=== PATIENT | male | born 1960 | race Caucasian/White ===

== ENCOUNTER 2021-11-20 16:42 | Emergency (ER) | payer OTHER, SELFPAY ==
[2021-11-20 17:16] VITALS: BP 136/75; PULSE 63; RESP 18; TEMP 36.6; O2SAT 95; BMI 30.2
--- NOTE | 2021-11-20 18:06 | ED_ITS ---
HPI - Wound/Laceration General Chief Complaint: Laceration/Wound Stated Complaint: Finger Lac Time Seen by Provider: 11/20/21 17:06 History of Present Illness HPI narrative: Patient is a 61-year-old gentleman up-to-date on his tetanus shot who inadvertently hit his left 5th digit of his upper extremity with high stiff straw hat washer. He suffered a superficial skin tear on the lateral aspect of the digit. This created the proximally a 4 cm skin tear. Patient has full range of motion of the digit there were no foreign bodies present. He has no numbness no tingling no weakness. He is otherwise uninjured. Related Data Home Medications Medication Instructions Recorded Confirmed ciprofloxacin HCl 500 mg tablet mg 11/20/21 levothyroxine 150 mcg tablet mcg 11/20/21 (Synthroid) meloxicam 11/20/21 Review of Systems Status of ROS: Reports: 6 or more systems reviewed and unremarkable except as noted in History and below PFSH PFSH Medical History Arthritis Hypothyroid Social History Smoking Status: Never smoker How often do you have a drink containing alcohol: 2-3 times a week AUDIT-C Alcohol total score: 3 Non-prescribed substance use: denies use Exam Narrative: Exam Narrative: EXAM GENERAL: Patient appears comfortable and well. EYES: No scleral icterus. ENT: Tympanic membranes and oropharynx normal. THYROID: no thyroid nodules or thyromegaly. LYMPH: No supraclavicular or cervical lymphadenopathy. SKIN: Skin tear as described above EXT: No dependent lower extremity pedal edema. HEART: Regular rate and rhythm with no murmurs, rubs, or gallops. LUNGS: Clear to auscultation bilaterally with no crackles or wheezes. ABD: Soft, non tender, non distended. PSYCH: Good eye contact, speech is not pressured. Const: Vital Signs, click to edit/add: Vital Signs - 24 hr 11/20/21 17:16 Temperature 97.9 F Pulse Rate [Right Pulse Oximeter] 63 Respiratory Rate 18 Blood Pressure [Ri ght Upper Arm] 136/75 Pulse Oximetry 95 Course Course Hospital Course: After explaining the risks and benefits I did provide digital block with 4 mL of 2% lidocaine without epinephrine injected in the base of the left 5th upper extremity digit. After suitable anesthesia had been achieved in the wound was aggressively irrigated I did close the defect with 6 running 3-0 Ethilon sutures. Eyes instructed on wound care. Vital Signs Vital signs: Initial Vital Signs Temperature 97.9 F 11/20/21 17:16 Temperature Source Temporal Artery Scan 11/20/21 17:16 Pulse Rate 63 11/20/21 17:16 Respiratory Rate 18 11/20/21 17:16 Blood Pressure 136/75 11/20/21 17:16 Blood Pressure Mean 95 11/20/21 17:16 Blood Pressure Position Sitting 11/20/21 17:16 Pulse Oximetry 95 11/20/21 17:16 Oxygen Delivery Method 11/20/21 17:16 Vital Signs Temperature 97.9 F 11/20/21 17:16 Pulse Rate 63 11/20/21 17:16 Respiratory Rate 18 11/20/21 17:16 Blood Pressure 136/75 11/20/21 17:16 Pulse Oximetry 95 11/20/21 17:16 Temperature 97.9 F 11/20/21 17:16 Pulse Rate 63 11/20/21 17:16 Respiratory Rate 18 11/20/21 17:16 Blood Pressure 136/75 11/20/21 17:16 Pulse Oximetry 95 11/20/21 17:16 Discharge Plan Discharge Clinical Impression: Laceration Patient Disposition: Home, Self-Care Condition: Stable Instructions: Laceration (ED) Additional Instructions: Sutures out in 1 week. Daily dressing changes for the next 4-5 days. Prescriptions: No Action ciprofloxacin HCl 500 mg tablet 0RF levothyroxine [Synthroid] 150 mcg tablet 0RF meloxicam 0RF Follow Up/Referrals: Chad Ryan MD [Primary Care Provider] - Stand Alone Forms: MyHealth Info Instructions
[2021-11-20 18:28] VITALS: RESP 18; TEMP 36.6
[2021-11-20 18:37] VITALS: BP 136/75; PULSE 63; RESP 18; TEMP 36.6; O2SAT 95
== END 2021-11-20 18:35 | disposition home or self-care (01) ==
PROVIDERS: Emergency Provider Internal Medicine; PCP Family Medicine
DX: S61.217A Laceration without foreign body of left little finger without damage to nail, initial encounter (principal); W26.9XXA Contact with unspecified sharp object(s), initial encounter
CPT/HCPCS: 12002; 99283

== ENCOUNTER 2023-08-18 16:57 | Outpatient (CLI) | payer OTHER, SELFPAY ==
--- NOTE | 2023-08-18 17:30 | MR_ITS ---
Patient: SHAYY ROCK Facility:?[facility] Patient ID:?[id number] Site Patient ID:?[id number]. Site :?[id number] Study:?MRI-Extremity Left WRIST WO-08/18/2023 6:32:19 PM Ordering Physician:RANI BURKS Final Report: EXAM: MRI OF THE LEFT WRIST, WITHOUT CONTRAST CLINICAL INDICATION: Left wrist sprain. COMPARISON PLAIN FILMS: None. COMPARISON CROSS-SECTIONAL IMAGING STUDIES: None. TECHNICAL: Axial, sagittal and coronal T1, PD, PD FS and gradient echo images. FINDINGS: JOINTS: Radiocarpal: Focal moderate to high-grade chondral fissuring with subchondral cystic change of the dorsal aspect of the distal radius in the lunate fossa. No joint effusion. Distal Radioulnar: No effusion, erosive change or arthrosis. Midcarpal: No effusion, erosive change or arthrosis. Carpal/metacarpal: Moderate to full-thickness chondromalacia throughout the 1st CMC joint with subchondral cystic change hypertrophic change. Mild to moderate chondromalacia with mild hypertrophic change in the 1st MCP joint. Periarticular Ganglia: None present. OSSEOUS STRUCTURES: Carpal Bones: Small intraosseous ganglia in the head and proximal pole of the scaphoid. Distal Radius: No fracture or marrow edema. Distal Ulna: No fracture or marrow edema. Normal ulnar variance. Proximal Metacarpals: No fracture or marrow edema. TRIANGULAR FIBROCARTILAGE COMPLEX: TFC: The fibrocartilaginous disc is intact. The radial attachment and ulnar styloid and foveal attachments of the TFC appear intact. Radioulnar Ligaments: The volar and dorsal radioulnar ligaments are intact. Ulnar Collateral Ligament, Meniscal Homologue and Prestyloid Recess: Unremarkable. LIGAMENTS: Scapholunate: Intact. No widening of the interval. Lunotriquetral: Intact. No widening of the interval. Extrinsic: No ligamentous edema or fluid filled defect. TENDONS: Flexor Tendons: Intact. No tenosynovitis. Extensor Tendons (Compartments 1-5): Intact. No tenosynovitis. ECU and 6th Extensor Compartment: The extensor carpi ulnaris tendon is intact. No abnormal tendon subluxation to suggest subsheath injury. No tenosynovitis. NEUROVASCULAR: Median Nerve: The median nerve is of normal size, caliber and course. No intrinsic abnormality of the carpal tunnel. Ulnar Nerve: The ulnar nerve is of normal size, caliber and course. No intrinsic abnormality of Guyon?s canal. OTHER FINDINGS: There is no soft tissue mass or fluid collection. IMPRESSION: 1. 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 2. Mild osteoarthritis in the 1st MCP joint. 3. Focal moderate to high-grade chondromalacia in the dorsal aspect of the distal radius. 4. Small ganglia in the scaphoid. Dictated by Senthil Davis MD @ 08/19/2023 10:41:43 AM Signed by:?Senthil Davis MD @08/19/2023 10:41:43 AM (Electronic Signature)
== END 2023-08-18 16:58 | disposition home or self-care (01) ==
PROVIDERS: PCP Family Medicine
DX: M25.532 Pain in left wrist (principal); M19.032 Primary osteoarthritis, left wrist; M94.232 Chondromalacia, left wrist; S63.592D Other specified sprain of left wrist, subsequent encounter
CPT/HCPCS: 73221

== ENCOUNTER 2024-04-19 10:22 | Outpatient (CLI) | payer OTHER, SELFPAY ==
--- NOTE | 2024-04-19 10:15 | CRLHL7_ITS ---
For Patients: As a result of the 21st Century Cures Act, medical imaging exams and procedure reports are released immediately into your electronic medical record. You may view this report before your referring provider. If you have questions, please contact your health care provider. EXAM: MRI OF THE RIGHT KNEE, WITHOUT CONTRAST CLINICAL INDICATION: Knee pain. PRIOR SURGERY: None reported. COMPARISON PLAIN FILMS: None available at time of interpretation. COMPARISON CROSS-SECTIONAL IMAGING STUDIES: None available at time of interpretation. TECHNICAL: Axial, sagittal and coronal T1, PD, PD FS and T2 FS images. 1.5 [employer] MR scanner. Knee coil. FINDINGS: OSSEOUS STRUCTURES: No fracture, marrow edema or marrow replacement process. JOINT SPACE AND CAPSULE: Effusion: Moderate-sized effusion. Joint Bodies: Numerous mineralized and ossified small to moderate-sized intra-articular bodies through the knee joint as well as popliteal cyst. CRUCIATE LIGAMENTS: Anterior Cruciate Ligament: Normal. Posterior Cruciate Ligament: Normal. EXTENSOR MECHANISM: Distal Quadriceps Tendon: Normal. Patellar Tendon: Normal. Medial Patellar Retinaculum and Medial Patellofemoral Ligament: Normal. Lateral Patellar Retinaculum: Normal. Normal patellar alignment. No patella sarah. Normal trochlear depth. Normal lateral trochlear inclination. MEDIAL COLLATERAL LIGAMENT AND POSTEROMEDIAL CORNER COMPLEX: Medial Collateral Ligament: Intact. Bowed outward by osteophytes. Medial Head of the Gastrocnemius and Semimembranosus Tendons: Normal. LATERAL COLLATERAL LIGAMENT COMPLEX AND POSTEROLATERAL CORNER COMPLEX: Fibular Collateral Ligament: Normal. Distal Biceps Femoris Tendon Complex: Normal. Iliotibial Band: Normal. Popliteus Tendon: Normal. Posterolateral Corner Capsule: Normal. MEDIAL COMPARTMENT: Medial Meniscus: Moderately prominent irregular undersurface greater than free margin tearing in the body and posterior horn with slight flattened morphology of the meniscal remnant. Relative sparing of the anterior horn. Articular Cartilage: Chronic appearing up to grade 4 cartilage loss in the mid to outer weight-bearing condyle and plateau with patchy sclerosis and some edema and moderate marginal osteophytes. Small subchondral cysts at the outer margin of the condyle anteriorly. LATERAL COMPARTMENT: Lateral Meniscus: Normal size and morphology without tear. Articular Cartilage: Diffuse grade 2 thinning. Concave 4 millimeter grade 3 defect posterior weight-bearing condyle. PATELLOFEMORAL COMPARTMENT: Articular Cartilage: Mild patchy grade 1 chondromalacia and grade 2 fissuring in the patella and up to grade 3 fissuring and grade 3 thinning throughout the trochlea with small marginal osteophytes of both patella and trochlea. PERIARTICULAR SOFT TISSUES: Popliteal Cyst: [id number] cyst filled with ossified trapped prior intra-articular bodies. Periarticular Cysts or Ganglia: None. Bursae: No prepatellar, superficial infrapatellar, deep infrapatellar, pes anserinus or semimembranosus/MCL bursitis. Musculature: No muscle atrophy or muscle edema. Subcutaneous and Soft Tissues: No subcutaneous or soft tissue mass, edema or fluid collection. Neurovascular Structures: Normal. IMPRESSION: 1. Innumerable ossified intra-articular bodies in a moderate-sized joint effusion and popliteal cyst. 2. Tricompartmental osteoarthritis is severe in the medial compartment. 3. Degenerative tearing of the medial meniscus. Dictated by Senthil Champion MD @ 04/20/2024 10:46:56 AM (Electronically Signed)
--- OUTSIDE RECORDS SUMMARY | 2024-04-19 10:25 | XMS_ITS | Encounter Summary ---
Author Organization [facility] Address [address] [place] [address] Care Team Providers Care Fare Register Repairer Name Role Phone Elsewhere, Pcp Primary Care Provider Unavailabl e Reason for Visit * Reason Comments Dizziness Encounter Details Date Type Department Care Team ([facility] st Contact Info) Description 02/19/2024 7:35 PM CDT - 02/20/2024 2:30 AM CDT Emergency [facility] Emergency Department [address] [place] [phone] Yolanda Champagne M.D. [address] [place] [phone] Presyncope (Primary Dx); Bradycardia Sinus Discharge Disposition: Home or Self Care Social History Tobacco Use Types Packs/Day Years Used Date Smoking Tobacco: Never Smokeless Tobacco: Never Alcohol Use Standard Drinks/Week Comments Yes 0 (1 standard drink = 0.6 oz pur e alcohol) social, once a month Nutrition Answer Date Recorded Nutrition: EVOO Fat Source 13 01/31 Nutrition: Servings of Fruits/Vegetables per Day Not on file 02/01/2020 Dental Answer Date Recorded Dental: Regular Dentist Unknown 07/18/19 21 Sex and Gender Information Value Date Recorded Sex Assigned at Male 01/20/2018 8:43 AM CDT Legal Sex Male 8:15 AM FLARE MAN Gender Identity Male 01/20/2018 8:43 AM CDT Sexual Orientation Straight 01/20/2018 8: 43 AM CDT documented as of this encounter Last Filed Vital Signs Vital Sign Reading Time Taken Comments Blood Pressure 178/92 02/20/2024 1:45 AM CDT Pulse 52 02/20/2024 1:18 AM CDT Temperature 36.6 C (97.9 F) 02/20/2024 12:18 AM CDT Respiratory Rate 16 02/20/2024 1:45 AM CDT Oxygen Saturation 97% 02/20/2024 12:44 AM CDT Inhaled Oxygen Concentration - - Weight 107 kg (235 lb 14.3 oz) 02/19/2024 7:37 P M CDT Height - - Body Mass Index 29.67 01/20/2018 8:48 AM CDT documented in this encounter Discharge Instructions * Discharge Instructions* Brett Ramsey M.D. - 02/20/2024 2:20 AM CDT - Your dizziness may be related to low heart rate. Recommend follow-up with you primary care provider regarding symptoms and consideration of Cardiology referral - Please follow-up with your PCP regarding high blood pressure noted during your ED visit today. - Advise reaching out to counselor for coping with grief * Attachments The following attachments cannot be sent through Care Everywhere. * Dizziness [id number] * Near-Syncope [id number] documented in this encounter Medications at Time of Discharge aspirin [address] tablet Take 81 mg by mouth daily. cholecalciferol (VITAMIN D3) 1,000 Unit tablet Take 1,000 Units by mouth daily. glucosamine-chond roitin 500-400 mg per tablet Take 1 tablet by mouth daily. levothyroxine (SYNTHROID, LEVOTHROID) 175 mcg tablet Take 175 mcg by mouth every morning before breakfast. loratadine (CLARITIN) 10 mg tablet Take 10 mg by mouth daily. omega-3 acid ethyl esters (LOVAZA) 1 gram capsule Take 2 g by mouth 2 (two) times a day. UNABLE TO FIND Take by mouth daily. Med Name: Saw Palmettol. 1200 or 1500 dosage strength. documented as of this encounter ED Notes * Yolanda Champagne M.D. - 02/20/2024 2:30 AM CDT I have personally seen and examined this patient. I have fully participated in the care of this patient. I have reviewed all clinical information including history, physical exam, orders, and plan. Hafsa with the note of the resident. Delightful 64-year-old gentleman with a history of AFib, sleep apnea, and of his daughter 2 years ago presents for evaluation of dizziness which he describes as lightheadedness without syncope x2 weeks. Additionally, he notes fatigue and left parasternal chest discomfort to touch x3 days. Exam: Very pleasant Admits to being depressed but denies suicidal ideation Bradycardic rate and regular rhythm Nontender abdomen Clear lung hayden throughout Calves are symmetric and without edema Equal radial pulses Impression/plan: Lightheadedness We obtained an ECG and lab work. He is bradycardic but that is longstanding. Lab work was reassuring. I have recommended follow-up with his primary care physician to discuss whether another Holter monitor could be of value. Additionally, I have recommended that he touch base with his counselor because I think he would benefit from talking through his grief reaction with the counselor again. I do not suspect risk for self-harm. The chest pain is atypical. Fortunately, troponin assays were reassuring. ED Course as of 02/20/24 0758 FriFeb 20, 2024 0120 I have personally reviewed the ECG and it is notable for: sinus karlos 54 bpm, no ischemia, normal intervals. 0123 Troponin T, Baseline, 5th gen: 6 0123 2H Delta Interp: Not Changing [id number] ECHO: normal EF 0151 Sodium, P: 141 0151 Potassium, P: 4.5 0151 Leukocytes: 6.3 0151 Hemoglobin: 14.5 0151 NT-Pro BNP(!): 101 I have personally reviewed the x-ray imaging which is notable for: no infiltrate, no PTX. No cardiomegaly. Final Diagnoses: as of 02/20/24 0758 Presyncope Bradycardia Sinus Yolanda Champagne M.D. 02/20/24 0802 * Brett Ramsey M.D. - 02/20/2024 12:49 AM CDT SUBJECTIVE CHIEF COMPLAINT/REASON FOR VISIT Dizziness HISTORY OF PRESENT ILLNESS Mr. Mitchell is a 64 y.o. male with a past medical history of arial fibrillation status post cardioversion in 2015 resulting in cardiac arrest followed by sinus bradycardia and recurrent atrial fibrillation in 2018 which converted to sinus after metoprolol (not currently on anticoagulation), sinus bradycardia (baseline HR 40s-50s), hypothyroidism, mild LUCIO presenting with 2 weeks of orthostatic dizziness and 2 days of chest pain. In the past few weeks, he has been feeling dizziness upon position changes from sitting to standing. Unclear that was spinning sensation. Denies blurred vision, losing consciousness, nausea, vomiting, or worsening tinnitus from baseline. Denies palpitation or fever. In the past few days, he has been experiencing dull chest discomfort on the left side which worsens with pressure, but not with exertion and improves with deep inspiration. Denies diaphoresis or shortness of breath. Patient reports losing his daughter recently. REVIEW OF SYSTEMS All other systems reviewed and are negative. OBJECTIVE Initial Vitals Temperature 02/19/241937 37 ??C Pulse Rate 02/19/241937 (!) 57 Heart Rate 02/20/24 0044 (!) 45 Resp Rate 02/19/241937 16 Blood Pressure 02/19/241937 147/74 SpO2 02/19/241937 96 % Pain Score 02/19/241938 2 No orthostatic hypotension PHYSICAL EXAMINATION Constitutional: Vitals reviewed. Cardiovascular: S1 normal and S2 normal. Bradycardia present. Capillary refill: takes less than 3 secondsEdema: no edema noted Pulmonary/Chest: Effort normal and breath sounds normal. Abdominal: Soft. Musculoskeletal: Comments: Tenderness at the left lower ribs close to the sternum Neurological: Alert and oriented to person, place, and time. He has cranial nerves II through XII intact. No nystagmus ASSESSMENT/PLAN His orthostatic dizziness is most concerning for presyncope which could present symptomatic bradycardia. However, he has been having longstanding bradycardia without symptoms, and there was no changein oral intake or medication. In the past few days, he also has constant dull chest pain. We will obtain EKG, troponin, and chest x-ray to rule out ACS given chest pain and pre-syncope. The improvement of pain with inspiration makes the suspicion for spontaneous pneumothorax low. He does have normal respiratory effort, oxygen saturation, and clear lung sounds, making pulmonary cause for the chestpain less likely. He did not have history of trauma, which lowers the suspicion for rib fractures. Of note, he does have high blood pressure in the ED which is reportedly higher than his usual bloodpressure. ED Course as of 02/20/24 0245 FriFeb 20, 2024 0046 ECG 12 Lead 0046 DX Chest AP or PA and Lateral 2 Views 0241 Initial troponin 6 and 2-hour troponin <6 which can exclude ACS Final Diagnoses: as of 02/20/24 0245 Presyncope Bradycardia Sinus EKG: sinus bradycardia without significant change Chest x-ray: Minimal left basilar atelectasis. Mild hypertrophic degenerative changes of the spine.Chest otherwise negative Plan - Disposition: home - Recommends PCP follow-up for monitoring and management of his presyncope and high blood pressure - Recommend consideration of Cardiology referral for the suspicion of asymptomatic bradycardia - Recommends seeking counselor for coping with grief Brett Ramsey M.D. Resident 02/20/24244 * Nancy Rodriguez R.N. - 02/19/2024 7:39 PM CDT Pt presents to the ED with dizziness x 2 weeks, fatigue and chest pain for 3 days. Pt states that his chest pain is worse when he pushes on his sternum Nancy Rodriguez R.N. 02/19/241939 documented in this encounter Plan of Treatment Not on file documented as of this encounter Procedures Procedure Name Priority Date/Time Associated Diagnosis Comments TROPONIN T, 2H/6H REFLEX, 5TH GEN, P Timed 02/19/2024 10:55 PM CDT CBC WITH DIFFERENTIAL, B STAT 02/19/2024 8:27 PM CDT TROPONIN T, BASELINE, 5TH GEN, P STAT 02/19/2024 8:26 PM CDT NT-PRO B-TYPE NATRIURETIC PEPTIDE (BNP), S STAT 02/19/2024 8:26 PM CDT BASIC METABOLIC PANEL, S/P STAT 02/19/2024 8:26 PM CDT DX CHEST AP OR PA AND LATERAL 2 VIEWS RAD - Semiurgent (Fast; most ED patients; some inpatients) 02/19/2024 8:23 PM CDT ECG STAT 02/19/2024 7:45 PM CDT documented in this encounter Results * Troponin T, 2 Hour with 6 Hour Reflex, 5th Gen (02/19/2024 10:55 PM CDT) Pathologist [facility] Troponin T, 2 hr, 5th gen <6 <=15 ng/L 02/19/2024 11:35 PM CDT STMA 2H Delta -1 ng/L 02/19/2024 11:35 PM CDT STMA Comment:6 hour collection no t indicated. 2H Delta Interp Not Changing 02/19/2024 11:35 PM CDT STMA Blood 02/19/2024 10:5 5 PM CDT 02/19/2024 11:11 PM CDT us Salbador Gamboa M.D. LAB BLOOD TROPONIN Final Result [facility] [address] [place] [address], [facility] [address] [place] [address] * CBC with Differential, Blood (02/19/2024 8:27 PM CDT) Pathologist [facility] Hemoglobin 14.5 13.2 - 16.6 g/dL 02/19/2024 9:10 PM CDT STMA Hematocrit 43.0 38.3 - 48.6 % 02/19/2024 9:10 PM CDT STMA Erythrocytes 4.90 4.35 - 5.65 x10(12)/L 02/19/2024 9:10 PM CDT STMA MCV 87.8 78.2 - 97.9 fL 02/19/2024 9:10 PM CDT STMA RBC Distrib Width 12.9 11.8 - 14.5 % 02/19/2024 9:10 PM CDT STMA Platelet Count 191 135 - 317 x10(9)/L 02/19/2024 9:10 PM CDT STMA Leukocytes 6.3 3.4 - 9.6 x10(9)/L 02/19/2024 9:10 PM CDT STMA Neutrophils 4.35 1.56 - 6.45 x10(9)/L 02/19/2024 9:10 PM CDT DHPM Lymphocytes 1.30 0.95 - 3.07 x10(9)/L 02/19/2024 9:10 PM CDT STMA Monocytes 0.41 0.26 - 0.81 x10(9)/L 02/19/2024 9:10 PM CDT STMA Eosinophils 0.22 0.03 - 0.48 x10(9)/L 02/19/2024 9:10 PM CDT STMA Basophils 0.03 0.01 - 0.08 x10(9)/L 02/19/2024 9:10 PM CDT STMA Blood (Blood, Venous) 02/19/2024 8:27 PM CDT 02/19/2024 9:05 PM CDT Yolanda Champagne M.D. LAB BLOOD ADD-ON Final Resu lt [facility] [address] [place] [address], [facility] STMA [facility] [address] [place] [address] [facility] [address] [place] [address] * Troponin T, Baseline with 2 Hour/6 Hour Reflex Biomarker Panel (02/19/2024 8:26 PM CDT) Troponin T, Baseline, 5th gen 6 <=15 ng/L 02/19/2024 9:34 PM CDT STMA Blood (Blood, Venous) 02/19/2024 8:26 PM CDT 02/19/2024 9:05 PM CDT us Yolanda Champagne M.D. LAB BLOOD TROPONIN Final Re sult Performing Organization Address City/[facility]/ZIP Co de Phone Number [facility] [address] [place], [place] [id number] [place] [address] 200 [place] [address] * (ABNORMAL) NT-Pro B-Type Natriuretic Peptide (BNP) (02/19/2024 8:26 PM CDT) Pathologist [facility] NT-Pro BNP 101(H) <=88 pg/mL 02/19/2024 9:34 PM CDT [facility] Comment: NT-proBNP values less than 300 pg/mL have a 99% negative predictive value for excluding acute congestive heart failure. A cutoff of 1200 pg/mL for patients with an eGFR<60 yields a diagnostic sensitivity and specificity of 89% and 72% for acute congestive heart failure. A diagnostic NT-proBNP cutoff of 900 pg/mL has been suggested in adults 50-75 years of age in the absence of renal failure. Blood (Blood, Venous) 02/19/2024 8:26 PM CDT 02/19/2024 9:05 PM CDT us Yolanda Champagne M.D. LAB BLOOD ADD-ON Final Resu lt [facility] [address] [place], [place] [address] [address] [place] [address] * (ABNORMAL) Basic Metabolic Panel (02/19/2024 8:26 PM CDT) [facility] Potassium, P 4.5 3.6 - 5.2 mmol/L 02/19/2024 9:25 PM CDT STMA Sodium, P 141 135 - 145 mmol/L 02/19/2024 9:25 PM CDT STMA Chloride, P 106 98 - 107 mmol/L 02/19/2024 9:25 PM CDT STMA Bicarbonate, P 25 22 - 29 mmol/L 02/19/2024 9:25 PM CDT STMA Anion Gap, P 10 7 - 15 02/19/2024 9:25 PM CDT STMA BUN (Blood Urea Nitrogen), P 31(H) 8 - 24 mg/dL 02/19/2024 9:25 PM CDT STMA Creatinine 1.09 0.74 - 1.35 mg/dL 02/19/2024 9:25 PM CDT STMA Estimated GFR (eGFR) 77 >=60 mL/min/BSA 02/19/2024 9:25 PM CDT ST[facility] Comment: Estimated GFR calculated using the 2020 CKD_EPI creatinine equation. Calcium, Total, P 9.5 8.8 - 10.2 mg/dL 02/19/2024 9:25 PM CDT STMA Glucose, P 110 70 - 140 mg/dL 02/19/2024 9:25 PM CDT ST[facility] Blood (Blood, Venous) 02/19/2024 8:26 PM CDT 02/19/2024 9:05 PM CDT Yolanda Champagne M.D. LAB BLOOD ADD-ON Final Resu lt [facility] [address] [place] [address], [facility] [address] [place] [address] * DX Chest AP or PA and Lateral 2 Views (02/19/2024 8:23 PM CDT) Anatomical Region Laterality Modality Chest, Thoracic RST LOS, Tho racic ARZ LOS, Thoracic FLA LOS N/A Digital Radiography Impressions 02/19/2024 8:35 PM CDT No synovial change since 12/05/2017. Minimal left basilar atelectasis. Mild hypertrophic degenerative changes of the spine. Chest otherwise negative. Narrative 02/19/2024 8:35 PM CDT EXAM: DX CHEST AP OR PA AND LATERAL 2 VIEWS Procedure Note David Avalos M.D. - 02/19/2024 EXAM: DX CHEST AP OR PA AND LATERAL 2 VIEWS IMPRESSION: No synovial change since 12/05/2017. Minimal left basilar atelectasis. Mildhypertrophic degenerative changes of the spine. Chest otherwisenegative. Yolanda Champagne M.D. IMG DIAGNOSTIC IMAGING PROC EDURES Final Result * ECG 12 Lead (02/19/2024 7:45 PM CDT) Ventricular Rate ECG/Min 54 BPM MUSE MD Interval 176 ms MUSE QRSD Interval 90 ms MUSE QT Interval 430 ms MUSE QTC Interval 407 ms MUSE P [place] 73 degrees MUSE R [place] 9 degrees MUSE T Wave [place] 62 degrees MUSE 02/19/2024 7:45 PM CDT 02/19/2024 7:49 PM CDT Impressions MUSE - 02/19/2024 7:49 PM CDT Sinus bradycardia Otherwise normal ECG When compared with ECG of 06-Dec-2017 14:12, No significant change was found Reviewed by RUBÉN Amezcua Narrative Procedure Note Hemant To M.D. - 02/19/2024 IMPRESSION: Sinus bradycardia Otherwise normal ECG When compared with ECG of 06-Dec-2017 14:12, No significant change was found Reviewed by RUBÉN Amezcua us Yolanda Champagne M.D. ECG ORDERABLES Final Resul t MUSE NA documented in this encounter Visit Diagnoses Diagnosis Presyncope- Primary Bradycardia Sinus documented in this encounter Administered Medications Inactive Administered Medications - up to 3 most recent administrations Medication Order MAR Action Action Date Dose Rate Site sodium chloride 0.9 % injection 10 mL 10 mL, intravenous, As needed, line care, Starting on Chaya 02/19/24 at 1940, Peripheral Intravenous Catheter and Rapid Infusion Catheter, prior to blood sampling, post blood transfusion or post blood sampling sodium chloride 0.9 % injection 3 mL 3 mL, intravenous, As needed, line care, Starting on Chaya 02/19/24 at 1940, Prior to and following infusion and between multiple consecutive infusions: sodium chloride 0.9 % injection sodium chloride 0.9 % injection 3 mL 3 mL, intravenous, Every 12 hours scheduled, First dose on Chaya 02/19/24 at 2100, Peripheral Intravenous Catheter and Rapid Infusion Catheter, when no infusion to maintain patency documented in this encounter Active and Recently Administered Medications Times are shown in CDT. Scheduled Medication Order 02/18/2024 02/19/2024 02/20/2024 sodium chloride 0.9 % injection 3 mL 3 mL, intravenous, Every 12 hours scheduled, First dose on Chaya 02/19/24 at 2100, Peripheral Intravenous Catheter and Rapid Infusion Catheter, when no infusion to maintain patency 2100 (Due) PRN Medication Order 02/18/2024 02/19/2024 02/20/2024 sodium chloride 0.9 % injection 10 mL 10 mL, intravenous, As needed, line care, Starting on Chaya 02/19/24 at 1940, Peripheral Intravenous Catheter and Rapid Infusion Catheter, prior to blood sampling, post blood transfusion or post blood sampling sodium chloride 0.9 % injection 3 mL 3 mL, intravenous, As needed, line care, Starting on Chaya 02/19/24 at 1940, Prior to and following infusion and between multiple consecutive infusions: sodium chloride 0.9 % injection documented in this encounter Care Teams Fare Register Repairer Relationship Specialty Start Date End Date Elsewhere, Pcp PCP - General Internal Medicine 02/19/24 documented as of this encounter
--- OUTSIDE RECORDS SUMMARY | 2024-04-19 10:25 | XMS_ITS | Encounter Summary ---
Author Organization [facility] Address [address] [place] [id number] Care Team Providers Care Hot Stick Worker Name Role Phone Karl Rose MD Primary Care Provider [phone] Reason for Visit * Reason Onset Date Comments MRI Right Knee 04/09/2024 Encounter Details Date Type Department Care Team (Late st Contact Info) Description 04/09/2024 Telephone [facility] [address] [place] [id number] Odilia Chua I., PA-C [address] [place] [phone] MRI Right Knee Social History Tobacco Use Types Packs/Day Years Used Date Smoking Tobacco: Former Cigars Q uit: 1989 Smokeless Tobacco: Never Alcohol Use Standard Drinks/Week Comments Yes 0 (1 standard drink = 0.6 oz pur e alcohol) AUDIT-C Answer Date Recorded Frequency of Alcohol Consumption 2-4 times a fri06/03/2018 Average Number of Drinks 1 or 2 019 Frequency of Binge Drinking Never 05/19 PHQ-2 Answer Date Recorded PHQ-2 Score 0 09/16/2018 Education Answer Date Recorded What is the highest level of school you have completed or the highest degree you have received? 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 ES INSPECTOR * Telephone Encounter - Odilia Chua PA-C - 04/09/2024 1:29 PM CST The MRI order and cover sheet has been printed for faxing. [facility] fax number: ES INSPECTOR * Telephone Encounter - Allison Rodgers MA - 04/09/2024 1:16 PM CST Patient would like MRI ordered through [facility], he will be following up therewith Dr. Chad Ryan. Recommended he call our business office to discuss his billing/coding concerns, phone number was given to patient. ES INSPECTOR * Telephone Encounter - Odilia Chua PA-C - 04/09/2024 12:51 PM BRAKES INSPECTOR We can send the MRI to the location he is requesting, but since [facility] out of network for him, did he still want to follow-up with an [facility] provider? ES INSPECTOR * Telephone Encounter - Odilia Chua PA-C - 04/09/2024 12:49 PM BRAKES INSPECTOR The patient will need to contact the business office. It was not coded as an emergency. ES INSPECTOR * Telephone Encounter - Senia Valerio - 04/09/2024 11:33 AM CST Patient was seen on 05/01/24 for his right knee. Patient states work comp will not cover this injury. Patient states [facility] out of network. Patient would like to have MRI done in [place]. Please send request to [facility]. Patient would also like to know how the visit last week was coded. Patient states if it was coded as an emergency it would be covered in network for his insurance. Please advise. ES INSPECTOR documented in this encounter Plan of Treatment Not on file documented as of this encounter Visit Diagnoses Not on filedocumented in this encounter Care Teams Hot Stick Worker Relationship Specialty Start Date End Date Karl Rose MD [address] [place] [phone] PCP - General 12/23/17 documented as of this encounter
--- OUTSIDE RECORDS SUMMARY | 2024-04-19 10:25 | XMS_ITS | Data Portability ---
Author Organization [facility] Jasmyn gy, [facility] Address [address] [place] [address] Care Team Providers Care Risk Analyst Name Role Phone SHAYY CLEMENTS Primary Care Provider [phone] Assessment Encounter Date Assessment Date Assessment LastModified by Organization Details LastModified Time 11/21/2021 11/21/2021 61 Y/O MALE, PATIENT FOLLOWED BY DR COON WITH AN ELEVATED, RISING PSA. LUIS FIRM RT LOBE. TRUS/BX WENT WELL. PLAN RUTINE POSTOP RESTRICTIONS, LIMITATIONS AND WILL CALL PATH [email or web address] Not available 11/21/2021 22:26:50 Plan of Treatment Reminders Order Date Submit Date Provider Last Modified By Organization Details Last Modified Time Details Appointments None recorded. Lab urinalysis, dipstick 2021 022 [email or web address] Not available 11:36:11 PSA, total, serum or plasma 2021 022 [email or web address] Not available 13:20:29 PSA, serum or plasma 2021 022 [email or web address] Not available 11:06:51 PSA, serum or plasma 2021 022 [facility], [address], [place], [address], 10:40:15 PSA, total, serum or plasma 2021 022 [email or web address] 30 [facility], [address], [place], [address], 10:45:11 Referral None recorded. Procedures bladder scan (PROC) 2021 Not available 11:41:41 Surgeries None recorded. Imaging MRI, prostate, w/wo contrast 2021 [email or web address] Not available 12:49:39 Medication Orders tamsulosin 0.4 mg capsule [address] [facility] [address] [facility], [address] [place] [address], [id number], 22:13:43 gentamicin 40 mg/mL injection solution [address] [facility], [address] [place] [address], [phone], 10:32:00 tadalafil 20 mg tablet 2021 [facility], [address] [place] [address], [id number], 11:03:52 tamsulosin 0.4 mg capsule 2021 [facility], [address] [place] [address], [id number], 11:03:49 Patient TargetsNo targets recorded. Patient InstructionsNo instructions recorded. Reason for Referral None Reported. Results Created Date Observation Date Name Description Value Unit Range Abnormal Flag Note LastModifiedBy Organization Detail LastModifiedTime 07/19/1907/18/2021 bladd er scan (PROC ) Volume (in mL) 249ml Not Available [facility] [address], [place], [address], 07/18/2021 11:41:30 07/19/19 22 07/18/2021 urina lysis , dipst ick pH-Status 5.5 Not Available [facility] [address], [place], [address], 07/18/2021 11:35:44 09/13/19 22 09/12/2021 PSA, serum or plasm a PSA, Total 5.9ng/ mL Not Available [facility] [address], [place], [address], 09/12/2021 11:06:36 04/24/20 22 04/24/2022 PSA, serum or plasm a PSA 6.0 ng/mL 0-4.0 Not Available [facility] [address], [place], [address], 04/24/2022 10:40:03 07/24/19 22 06/21/2021 bladd er scan (PROC ) No observ ation record ed. BARCODE Not Available 2021 08:18:47 09/25/19 22 09/24/2021 MRI, prost ate, w/wo contr ast No observ ation record ed. [email or web address] [facility] (Centralized Fax Number) [phone], [place], [address], 06/07/2022 11:07:09 04/26/20 22 04/24/2022 bladd er scan (PROC ) No observ ation record ed. Not Available 05/20 11:06:53 Result Notes None recorded. Procedures Surgical History Date Name Laterality Status Provider Name and Address Organization Details Recorded Time 04/24/20 MOTOR VEHICLE EXAMINER/blood draw completed Marielle Bradford [facility] 04/24/2022 10:42:36 04/24/20 Bladder Scan completed Kingsley Coon MD [address] [place] [address],[address] [place] [address], [address], [facility] 04/24/2022 10:39:59 11/22/19 22 RU Prostate Bx completed Isidoro Shoemaker MD [address] [place] [address],[facility] [address], [address], [facility] 11/21/2021 22:25:30 09/13/19 22 Bladder Scan completed Kingsley Coon MD [address] [place] [address],[address], [place], [address], [facility] 09/12/2021 11:19:57 09/13/19 22 Blood Draw/MOTOR VEHICLE EXAMINER/PSA RESULTS completed Marielle Bradford [facility] 09/12/2021 11:06:29 07/19/19 22 Bladder Scan completed Kingsley Coon MD [address] [place] [address],[address], [place], [address], [facility] 07/18/2021 11:41:15 procedure on ankle completed Kingsley Coon MD [address] [place] [address],[address], [place], [address], [facility] 07/18/2021 11:44:44 excision of varicose vein completed Kingsley Coon MD [address] [place] [address],[address], [place], [address], [facility] 07/18/2021 11:45:23 Hernia Repair completed Kingsley Coon MD [address] [place] [address],[address], [place], [address], [facility] 07/18/2021 11:48:19 procedure on elbow completed Kingsley Coon MD [address] [place] [address],[address], [place], [address], [facility] 07/18/2021 11:45:43 referral to atrial fibrillation clinic completed Kingsley Coon MD [address] [place] [address],[address], [place], [address], [facility] 07/18/2021 11:46:26 Imaging Results Imaging Date Name Status LastModified by Organiz ation Details LastModified Time 06/21/2021 bladder scan (PROC) completed BARCODE Information not available 07/23/2021 08:18:47 09/24/2021 MRI, prostate, w/wo contrast completed [email or web address] [facility] (Centralized Fax Number) [phone], [place], [address], 06/07/2022 11:07:09 04/24/2022 bladder scan (PROC) completed [email or web address] Information not available 06/07/2022 11:06:53 Procedure Notes None recorded. Medical Equipment None Reported. Allergies No known drug allergies Medications Name Sig Start Date Stop Date Status Note LastModified by Organization Details LastModified Time Synthroid 150 mcg tablet active Not Available Not Available Not Available ciprofloxac in 500 mg tablet Take 1 tablet every 12 hours by oral route for 4 days. 04/24 completed Not Available Not Available Not Available meloxicam 7.5 mg tablet 2021 active Not Available Not Available Not Avai lable tamsulosin 0.4 mg capsule Take 1 capsule every day by oral route. 2021 active Not Available Not Available Not Avai lable mupirocin 2 % topical ointment APPLY OINTMENT TOPICALLY THREE TIMES DAILY 07/18 completed Not Available Not Available Not Available gentamicin 40 mg/mL injection solution Take 2 mL by injection route. 04/24 completed Not Available Not Available Not Available fluticasone propionate 50 mcg/actuati on nasal spray,suspe nsion 07/18 completed Not Available Not Available Not Available tadalafil 20 mg tablet Take 1 tablet as needed by oral route. 2021 active Not Available Not Available Not Avai deb [facility] COVID-19 Antigen Rapid Home Test kit USE DIRECTED 09/12 completed Not Available Not Available Not Available Vitals Date Recorded Body height Body mass index (BMI) Body weight Provider Name and Address Organization Details Last Updated DateTime 04/24/2022 187.96 cm 30.8 kg/m2 806585.17 mendy Coon MD [address] [place] [address],[address], [address], [facility] 04/24/2022 10:31:42 Date Recorded Body height Body mass index (BMI) Body weight Provider Name and Address Organization Details Last Updated DateTime 07/18/2021 187.96 cm 30.2 kg/m2 431529.21 mendy Coon MD [address] [place] [address],[address], [address], [facility] 07/18/2021 11:41:49 Date Recorded Body height Body mass index (BMI) Body weight Provider Name and Address Organization Details Last Updated DateTime 09/12/2021 187.96 cm 30.2 kg/m2 721401.21 g Marielle Bradford [facility] 09/12/2021 11:05:49 Date Recorded Body height Provider Name an d Address Organization Details Last Updated DateTime 11/21/2021 187.96 cm Cesar Sharif [facility] 0 11/21/2021 12:52:30 Social History Question Answer Notes LastModified by Organizat ion Details LastModified Time Tobacco Smoking Status Never Smoker Kingsley Coon MD [address] [facility],[address], [place], [address], [facility] 07/18/2021 11:43:31 What Is Your Level Of Alcohol Consumption? Moderate Information not available 07/18/2021 What Is Your Level Of Caffeine Consumption? Occasional Information not available 07/18/2021 What Was The Date Of Your Most Recent Tobacco Screening? 04/24/2022 Information not available 04/24/2022 Sex: Unknown Functional Status None recorded. Mental Status None recorded. Family History Relationship Description Onset Age of this Age Resolved Age Notes LastModified by Organization Details LastModified Time Father Malignant melanoma Not available 2021 11:42:56 Brother Family history of diabetes mellitus Not available 2021 11:43:01 Medical History Condition Response Other Y Past Encounters Encounter ID Performer Location Encounter Start Date Encounter Closed Date Diagnosis/Indication Diagnosis SNOMED-CT Code Diagnosis ICD10 Code [id number] MD Delia Zendejas [address] [place] [address] 07/18/2021 11:25:39 07/20/2021 16:18:10 Prostate specific antigen above reference range 791963973 R97.20 Lower urin leann tract symptoms due to benign prostatic hypertrophy 8905619498 9101 N40.1 Primary er ectile dysfunction 388765699 N52.9 [id number] MD SHRUTHI Zendejas[facility] [address] [place] [address] 09/12/2021 11:01:40 09/17/2021 14:35:27 Prostate specific antigen above reference range 062305605 R97.20 Lower urin leann tract symptoms due to benign prostatic hypertrophy 0705364349 9101 N40.1 Primary er ectile dysfunction 512458983 N52.9 [id number] Isidoro Shoemaker MD [facility] [address] [place] [address] 11/21/2021 12:48:32 11/23/2021 11:19:34 Prostate specific antigen above reference range 753802307 R97.20 [id number] Kingsley Coon MD [facility] [address] [place] [address] 04/24/2022 10:15:19 05/01/2022 09:53:21 Prostate specific antigen above reference range 149960785 R97.20 Lower urin leann tract symptoms due to benign prostatic hypertrophy 2285470377 9101 N40.1 Primary er ectile dysfunction 177266372 N52.9 Health Concerns Section Related Observation LastModified by Organization Detai ls LastModified Time None Recorded Concern Status LastModified by Organization Details LastModified Time None Recorded Advance Directives Directive None Recorded Payers Encounter Date Sequence Insurance Name Policy Number Policy Styles Covered Member ID Styles Member ID Guarantor Name 07/18/2021 1 [facility] Shayy Mitchell [id number] Shayy Mitchell 09/12/2021 [facility] Shayy Mitchell [id number] Shayy Mitchell 11/21/2021 1 [facility] ([facility]) Shayy Mitchell [id number] Shayy Mitchell 04/24/2022 1 [facility] ([facility]) Shayy Huang [id number] Shayy Mitchell Notes Date Note Type Note Provider Name and Address Organization Details Recorded Time 07/18/2021 text/html 61 yo male presents for evaluation of elevated PSA and trouble with urination (for the past several months). No Family Hx of Prostate cancer. He voids every 1-2 hours during the day and 2x/night. He reports hesitancy, slow stream, and urgency. He denies dysuria. He also reports increasing difficulty obtaining and maintaining erections over the past 1-2 years. He does have morning erections - denies pain or curvature with erections.- UA - no blood - no LE- PVR = 249 mL PSA - 4.81 (04/24/22)- 3.6 (November 2019)- 4.2 (May 2019) Kingsley Coon MD [address] [place] [address],[address], [address], [facility] 07/18/2021 22:26:47 09/12/2021 text/html 61 yo male presents for evaluation of elevated PSA and trouble with urination (for the past several months). No Family Hx of Prostate cancer. He voids every 1-2 hours during the day and 2x/night. He reports hesitancy, slow stream, and urgency. He denies dysuria. He also reports increasing difficulty obtaining and maintaining erections over the past 1-2 years. He does have morning erections - denies pain or curvature with erections.He is on Flomax 0.4 mg daily. 09/12/21 - He presents for follow-up on PSA and urination. He notes some improvement with Flomax. He voids every 2-3 hours during the day and 1-2x/night. He notes some drippage after urination. He also reports less urgency. He reports difficulty obtaining and maintaining erections - no pain or curvature erections. His daughter recently (from seizure).- PVR = 132 mL- PSA - 5.9 PSA - 5.9 (09/12/21)- 4.81 (04/24/22)- 3.6 (November 2019)- 4.2 (May 2019) Kingsley Coon MD [address] [place] [address],[address] [facility], [place], [address], [facility] 09/15/2021 18:53:36 11/21/2021 text/html 61 YOM HERE FOR TRUS BIOPSY, PT OF DR. COON (09/12/21) DR. COON61 yo male presents for evaluation of elevated PSA and trouble with urination (for the past several months). No Family Hx of Prostate cancer. He voids every 1-2 hours during the day and 2x/night. He reports hesitancy, slow stream, and urgency. He denies dysuria. He also reports increasing difficulty obtaining and maintaining erections over the past 1-2 years. He does have morning erections - denies pain or curvature with erections.He is on Flomax 0.4 mg daily. 09/12/21 - He presents for follow-up on PSA and urination. He notes some improvement with Flomax. He voids every 2-3 hours during the day and 1-2x/night. He notes some drippage after urination. He also reports less urgency. He reports difficulty obtaining and maintaining erections - no pain or curvature erections. His daughter recently (from seizure).- PVR = 132 mL- PSA - 5.9 PSA - 5.9 (09/12/21)- 4.81 (04/24/22)- 3.6 (November 2019)- 4.2 (May 2019) HERE FOR SCHEDULE TRUS BX. Isidoro Shoemaker MD [address] [place] [address],[facility] [address], [address], [facility] 01/23/2022 12:05:55 04/24/2022 text/html 62 yo male presents for evaluation of elevated PSA and trouble with urination (for the past several months). No Family Hx of Prostate cancer. He voids every 1-2 hours during the day and 2x/night. He reports hesitancy, slow stream, and urgency. He denies dysuria. He also reports increasing difficulty obtaining and maintaining erections over the past 1-2 years. He does have morning erections - denies pain or curvature with erections.He is on Flomax 0.4 mg daily. TRUS bx (11/21/21) - 70 gm - no cancer - + chronic inflammation at Right mid 09/12/21 - He presents for follow-up on PSA and urination. He notes some improvement with Flomax. He voids every 2-3 hours during the day and 1-2x/night. He notes some drippage after urination. He also reports less urgency. He reports difficulty obtaining and maintaining erections - no pain or curvature erections. His daughter recently (from seizure). 04/24/22 - He presents for follow-up on elevated PSA. He voids every 2-3 hours during the day and 1-2x/night. He notes less urgency - denies dysuria. He still has trouble obtaining and maintaining erections.- PVR = 153mL- PSA - 6.0 PSA - 6.0 (04/24/22)- 4.74 (02/26/22)- 5.9 (09/12/21)- 4.81 (04/24/22)- 3.6 (November 2019)- 4.2 (May 2019) Prostate MRI (09/24/21) - 76 gm - no suspicious lesions- no enlarged lymph nodes Kingsley Coon MD [address] [place] [address],[address], [place], [address], [facility] 04/24/2022 11:30:06
--- OUTSIDE RECORDS SUMMARY | 2024-04-19 10:25 | XMS_ITS | Clinical Summary ---
Author Organization [facility] Address [address] [place] [address] Care Team Providers Care Sign Language Translator Name Role Phone Karl Rose MD Primary Care Provider Allergies Active Allergy Reactions Criticality Noted Date Comments Other House Dust Mite Pollen Extract 05/30/2018 Seasonal Medications ibuprofen (ADVIL,MOTRIN) 200 MG tablet Take 400 mg by mouth if needed Active glucosamine-cho ndroitin 500-400 MG tablet Take 1 tablet by mouth 1 (one) time each day Active cholecalciferol (VITAMIN D-[address]) 1000 units tablet Take 1,000 Units by mouth 1 (one) time each day Active acetaminophen (TYLENOL) 500 MG tablet Take 500 mg by mouth if needed Active Krill Oil 1000 MG capsule Take 2,000 mg by mouth 1 (one) time each day Active aspirin 81 MG EC tablet Take 1 tablet (81 mg total) by mouth 1 (one) time each day Active omega-3 acid ethyl esters (LOVAZA) 1 g capsule Take 2 capsules (2 g total) by mouth 2 times daily Active loratadine (CLARITIN) 10 MG tablet Take 1 tablet (10 mg total) by mouth daily Active diclofenac (VOLTAREN) 1 % topical gelIndications: Arthritis of hand, right,Biceps tendonitis, right Apply 2 g to affected area(s) 4 times daily as needed for pain 100 g 3 9 Active [place]-3 Fatty Acids (Fish Oil) 875 MG capsule Active levothyroxine (Synthroid) 150 MCG tablet Active levothyroxine (SYNTHROID) 175 MCG tablet Take 1 tablet (175 mcg total) by mouth daily Active meloxicam (MOBIC) 7.5 MG tablet Take 1 tablet (7.5 mg total) by mouth 1 (one) time each day Takes 1 1/2 tablets per day Active tamsulosin (FLOMAX) 0.4 MG 24 hr capsule Take 1 capsule (0.4 mg total) by mouth 1 (one) time each day Active losartan (COZAAR) 50 MG tablet Take 1 tablet (50 mg total) by mouth 1 (one) time each day Active loratadine (CLARITIN) 10 MG tablet Take 10 mg by mouth 1 (one) time each day if needed 04/01/20 24 Discontinu ed(Jhonatan Elizabeth) Active Problems Problem Noted Date Diagnosed Date Arthritis of hand, right 02/26/2019 Arthritis of right knee 02/26/2019 Arthritis of right shoulder region 02/26/2019 LUCIO on CPAP 06/03/2018 Benign prostatic hyperplasia with urinary freque ncy 06/03/2018 Primary osteoarthritis of both knees 06/03/2018 Acquired hypothyroidism 05/26/2018 Hyperglycemia 05/26/2018 Encounters Date Type Department Care Team Description 04/09/2024 Telephone [facility] [address] [place] [address] Odilia Chua PA-C MRI Right Knee 04/01/2024 2:00 PM STORE CUSTODIAN - 04/01/2024 11:59 PM STORE CUSTODIAN Hospital Encounter [facility] [address] [place] [address] Discharge Disposition: Home or Self Care 04/01/2024 1:30 PM STORE CUSTODIAN Office Visit [facility] [address] [place] [address] Odilia Chua PA-C Acute pain of right knee (Primary Dx) 04/01/2024 Telephone [facility] [address] [place] [address] Odilia Chua PA-C [employer] Training Paperwork from Last 3 Months Immunizations Name Administration Dates Next Due Flu Vaccine 50-64yrs Flublok (Egg Free) 04/09/2019 Influenza 6mo-64yrs Quad Pre servative Free IM 02/06/2018,03/06/2017,04/16/2016,2014 Influenza, Split Virus, Triv alent, Preservative 03/18/2011 Influenza, Trivalent, PF 02/26/2013 Tdap 06/06/2017 Family History Medical History Relation Comments Diabetes Brother 1 Diabetes Brother 2 Seizures Daughter 1 No Known Problems Daughter 2 Cancer Father Hyperthyroidism Father Multiple myeloma Father COPD Mother Heart disease Paternal Grandfather Fibromyalgia Sister 1 No Known Problems Sister 2 No Known Problems Sister 3 Relation Status Comments Brother 1 Brother 2 Alive Daughter 1 Alive Daughter 2 Alive Father Mother Alive Paternal Grandfather Sister 1 Alive Sister 2 Alive Sister 3 Alive Social History Tobacco Use Types Packs/Day Years [...] 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 Start 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 [employer] Not on file Not on file N ot on file Last Filed Vital Signs Vital Sign Reading Time Taken Comments Blood Pressure 121/69 04/01/2024 1:43 PM STORE CUSTODIAN Pulse 57 04/01/2024 1:43 PM STORE CUSTODIAN Temperature 36.3 C (97.3 F) 04/01/2024 1:43 PM STORE CUSTODIAN Respiratory Rate 20 04/01/2024 1:43 PM STORE CUSTODIAN Oxygen Saturation 96% 05/07/2019 8:13 AM STORE CUSTODIAN Inhaled Oxygen Concentration - - Weight 109 kg (239 lb 6.4 oz) 04/01/2024 1:43 PM STORE CUSTODIAN Height 185 cm (6' 0.84) 04/01/2024 1:43 PM STORE CUSTODIAN Body Mass Index 31.73 04/01/2024 1:43 PM STORE CUSTODIAN Plan of Treatment Health Maintenance Due Date Last Done Comments CT Colonography 1962 FIT-DNA 1962 Sigmoidoscopy 1962 iFOBT 1962 Zoster Vaccines (1 of 2) 01/15/2012 Colonoscopy 06/28/2023 06/28/2013 Colorectal Cancer Screening 06/28/2023 COVID-19 Vaccine (5 - season) 2024 04/04/2022, 04/02/2021, 08/26/2020, Additional history exists Influenza Vaccine (#1) 2024 2, 04/02/2021, 04/09/2019, Additional history exists DTaP,Tdap,and Td Vaccines (2 - Td or Tdap) 06/06/2027 06/06/2017 HPV Vaccines Aged Out No longer eligi ble based on patient's age to complete this topic Pneumococcal Vaccine: Pediatrics (0 to 5 Years) and At-Risk Patients (6 to 64 Years) Aged Out No longer eligible based on patient's age to complete this topic Procedures Procedure Name Priority Date/Time Associated Diagnosis Comments XR KNEE 4+ VIEWS RIGHT Routine 04/01/2024 2:22 PM STORE CUSTODIAN Acute pain of right knee from Last 3 Months Results * X-ray Knee 4+ Views Right (04/01/2024 2:22 PM STORE CUSTODIAN) Anatomical Region Laterality Modality Lower Extremities, Knee, Patella Right Digital Radiography Impressions 04/01/2024 3:01 PM STORE CUSTODIAN 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 Right knee joint effusion. If clinical concern persists, consider MRI for further evaluation. Narrative 04/01/2024 3:01 PM STORE CUSTODIAN INDICATION: Right knee pain, felt a pop, anterolateral knee pain DOI: 03/31/2024 COMPARISON: 06/29/2018. FINDINGS: Four views. No acute fracture or dislocation. Mild-moderate tricompartmental degenerative changes of the right knee, most significantly involving the medial tibiofemoral compartment.. There are multiple ossified intra-articular loose bodies noted There is evidence of a right knee joint effusion. Joint effusion. Standing views of the left knee demonstrate mild-moderate degenerative changes. Procedure Note Navin Arias MD - 04/01/2024 INDICATION: Right knee pain, felt a pop, anterolateral knee pain DOI: 03/31/2024 COMPARISON: 06/29/2018. FINDINGS: Four views. No acute fracture or dislocation. Mild-moderate tricompartmentaldegenerative changes of the right knee, most significantly involving themedial tibiofemoral compartment.. There are multiple ossifiedintra-articular loose bodies noted There is evidence of a right knee joint effusion. Joint effusion. Standing views of the left knee demonstrate mild-moderate degenerativechanges. IMPRESSION: Mild-moderate tricompartmental degenerative arthritis of the right kneewith multiple ossified intra-articular loose bodies. Right knee jointeffusion. If clinical concern persists, consider MRI for further evaluation. 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
--- OUTSIDE RECORDS SUMMARY | 2024-04-19 10:25 | XMS_ITS | Clinical Summary ---
Author Organization [facility] Address [address] [place] [address] Care Team Providers Care Data Control Clerk Name Role Phone Elsewhere, Pcp Primary Care Provider Unavailabl e Source Comments Patient records contain information from all sites at [facility]. For routine questions regarding patient records, call [phone] during business hours, M-F 8:00 AM - 5:00 PM Central Time. Record requests for emergency care only can be directed to [phone] at any time.[facility] Allergies Active Allergy Reactions Criticality Noted Date Comments House Dust Mite Other (see comments) Low 12/06/2017 sneeze Pollen Extracts Other (see comments) Low 12/06/2017 Sneeze Medications aspirin [address] tablet Take 81 mg by mouth daily. Active cholecalciferol (VITAMIN D3) 1,000 Unit tablet Take 1,000 Units by mouth daily. Active loratadine (CLARITIN) 10 mg tablet Take 10 mg by mouth daily. Active levothyroxine (SYNTHROID, LEVOTHROID) 175 mcg tablet Take 175 mcg by mouth every morning before breakfast. Active omega-3 acid ethyl esters (LOVAZA) 1 gram capsule Take 2 g by mouth 2 (two) times a day. Active UNABLE TO FIND Take by mouth daily. Med Name: Saw Palmettol. 1200 or 1500 dosage strength. Active glucosamine-cho ndroitin 500-400 mg per tablet Take 1 tablet by mouth daily. Active Active Problems Problem Noted Date Diagnosed Date Atrial Fibrillation Paroxysmal 12/06/2017 Apnea Sleep Obstructive 12/06/2017 Hypothyroidism 12/06/2017 Encounters Date Type Department Care Team Description 02/19/2024 7:35 PM CDT - 02/20/2024 2:[address] [facility] Emergency Department [address] [place] [phone] Yolanda Champagne M.D. 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 Gender Identity Male 01/20/2018 8:43 AM CDT Sexual Orientation Straight 01/20/2018 8: 43 AM CDT Last Filed Vital Signs Vital Sign Reading [...] oz) 02/19/2024 7:37 P M CDT Height 189.9 cm (6' 2.76) 01/20/2018 8:48 AM CD T Body Mass Index 29.67 01/20/2018 8:48 AM CDT Plan of Treatment Health Maintenance Due Date Last Done Comments CT Colonography 1962 Cologuard 1962 Colonoscopy 1962 Colorectal Cancer Screening 1962 FIT 1962 HIV Screening 1962 Hepatitis C Screening 1962 Zoster Vaccines (1 of 2) 01/15/2012 Thyroid Stimulating Hormone (TSH) test for thyroid function 05/28/2019 05/28/2018, 12/06/2017, 12/05/2017 RSV vaccine - (32-36 weeks) or 60+ years (1 - Risk 60-74 years 1-dose series) 2022 Depression Screening (Annual PHQ-2) 05/19/2023 Lipid (Cholesterol) Screening 05/28/2023 05/28/2018 COVID-19 Vaccine ( season) 2024 04/04/2022, 04/02/2021, 08/26/2020, Additional history exists Influenza Vaccine (#1) 2024 2, 04/02/2021, 04/09/2019, Additional history exists Fasting Glucose for Diabetes Screening 02/18/2027 02/19/2024, 05/28/2018, 12/06/2017 DTaP,Tdap,and Td Vaccines (2 - Td or Tdap) 06/06/2027 06/06/2017 IPV Vaccines Aged Out No longer eligi ble based on patient's age to complete this topic Pneumococcal vaccine (0-64 years) Aged Out No longer eligible based on [...] CDT ECG STAT 02/19/2024 7:45 PM CDT THYROID-STIMULATIN G HORMONE-SENSITIVE (S-TSH) STAT 12/06/2017 12:49 AM CDT from Last 3 Months or Most Recently Relevant to Health Maintenance Results * Troponin T, 2 Hour with 6 Hour Reflex, 5th Gen (02/19/2024 10:55 PM CDT) Troponin T, 2 hr, 5th gen <6 <=15 ng/L 02/19/2024 11:35 PM CDT [facility] 2H Delta -1 ng/L 02/19/2024 11:35 PM CDT [facility] Comment:6 hour collection no t indicated. 2H Delta Interp Not Changing 02/19/2024 11:35 PM CDT [facility] Blood 02/19/2024 10:5 5 PM CDT 02/19/2024 11:11 PM CDT Salbador Gamboa M.D. LAB BLOOD TROPONIN Final Result [facility] [address] [place] [address], [facility] [address] [place] [address] * CBC with Differential, Blood (02/19/2024 8:27 PM CDT) Pathologist [facility] Hemoglobin 14.5 13.2 - 16.6 g/dL 02/19/2024 [...] 8:27 PM CDT 02/19/2024 9:05 PM CDT us Yolanda Champagne M.D. LAB BLOOD ADD-ON Final Resu lt [facility] [address] [place] [address], [facility] STMA [facility] [address] [place] [address] DHPM [facility] [address] [place] [address] * Troponin T, Baseline with 2 Hour/6 Hour Reflex Biomarker Panel (02/19/2024 8:26 PM CDT) Troponin T, Baseline, 5th gen 6 <=15 ng/L 02/19/2024 9:34 PM CDT [facility] Blood (Blood, Venous) 02/19/2024 8:26 PM CDT 02/19/2024 9:05 PM CDT us Yolanda Champagne M.D. LAB BLOOD TROPONIN Final Re sult [facility] [address] [place], [place] [id number] [place] [address] [address] [place] [address] * (ABNORMAL) NT-Pro B-Type Natriuretic Peptide (BNP) (02/19/2024 8:26 PM CDT) Pathologist [facility] NT-Pro BNP 101(H) <=88 pg/mL 02/19/2024 9:34 PM CDT [facility] Comment: NT-proBNP values less than 300 pg/mL [...] M.D. LAB BLOOD ADD-ON Final Resu lt Performing Organization Address [facility] Co de Phone Number [facility] [address] [place], [place] [phone] [place] [address] [address] [place] [address] * (ABNORMAL) Basic Metabolic Panel (02/19/2024 8:26 PM CDT) Pathologist [facility] Potassium, P 4.5 3.6 - 5.2 [...] M.D. LAB BLOOD ADD-ON Final Resu lt [facility] [address] [place] [address], [facility] [address] [place] [address] * DX Chest AP or PA and [...] degenerative changes of the spine. Chest otherwisenegative. us Yolanda Champagne M.D. IMG DIAGNOSTIC IMAGING PROC EDURES Final Result * ECG 12 Lead (02/19/2024 7:45 PM CDT) Ventricular Rate ECG/Min 54 BPM MUSE [place] Interval 176 ms MUSE QRSD Interval 90 ms MUSE QT Interval 430 ms MUSE QTC Interval 407 ms MUSE P [place] 73 degrees MUSE R [place] 9 degrees MUSE T Wave [place] 62 degrees MUSE 02/19/2024 7:45 PM CDT [...] Champagne M.D. ECG ORDERABLES Final Resul t MELITA NA * S-TSH (Thyroid-Stimulating Hormone - Sensitive) (12/06/2017 12:49 AM CDT) Pathologist [facility] TSH, Sensitive 2.9 0.3 - 4.2 mIU/L 12/06/2017 1:50 AM CDT [facility] Blood (Blood, Venous) 12/06/2017 12:49 AM CDT 12/06/2017 1:50 AM CDT us Thiago Morgan M.D. LAB BLOOD ADD-ON Final Resu lt [facility] [address] [place] [address], [facility] from Last 3 Months or Most Recently Relevant to Health Maintenance Insurance [employer] Advance Directives For more information, please contact: [phone] * Full Code (Latest Code Status on File) Date Activated Date Inactivated Comments 12/06/2017 12:07 PM 12/06/2017 6:55 PM Question Answer Comments Full Code: Discussed * Full Code Date Activated Date Inactivated Comments 12/06/2017 1:26 AM 12/06/2017 12:07 PM Question Answer Comments Full Code: Not Discussed Due to: Not medically appropriate Care Teams Data Control Clerk Relationship Specialty Start Date End Date Elsewhere, Pcp PCP - General Internal Medicine 02/19/24
--- OUTSIDE RECORDS SUMMARY | 2024-04-19 10:25 | XMS_ITS ---
Author Organization [facility] Address [address] [place] [address] Care Team Providers Care Care Program Resident Name Role Phone Unavailable Unavailable Unavailable Surgery Details Not on file Complications Check Surgery Details section. Procedure Estimated Blood Loss Check Surgery Details section. Procedure Findings Check Surgery Details section. Procedure Specimens Taken Check Surgery Details section.
--- OUTSIDE RECORDS SUMMARY | 2024-04-19 10:25 | XMS_ITS | Referral Summary ---
Author Organization [facility] Address [address] [place] [address] Care Team Providers Care Site Monitor Name Role Phone Elsewhere, Pcp Primary Care Provider Unavailabl e Source Comments Patient records contain information from all sites at [facility]. For routine questions regarding patient records, call [phone] during business hours, M-F 8:00 AM - 5:00 PM Central Time. Record requests for emergency care only can be directed to [phone] at any time.[facility] Encounters Date Type Department Care Team Description 02/19/2024 7:35 PM CDT - 02/20/2024 2:30 AM CDT Emergency [facility] Emergency Department [address] [place] [phone] Yolanda Champagne M.D. Presyncope (Primary Dx); Bradycardia Sinus Discharge Disposition: Home or Self Care from Last 3 Months Allergies Active Allergy Reactions Criticality Noted Date [...] FIND Take by mouth daily. Med Name: Sancho Hoangol. 1200 or 1500 dosage strength. Active glucosamine-cho ndroitin 500-400 mg per tablet Take 1 tablet by mouth daily. 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 LAB BLOOD TROPONIN Final Result [facility] [address] [place] [address], [facility] [address] [place] [address] * CBC with Differential, Blood (02/19/2024 8:27 PM CDT) Hemoglobin 14.5 13.2 - 16.6 g/dL 02/19/2024 [...] M.D. LAB BLOOD ADD-ON Final Resu lt [facility] [address] [place] [address], [facility] STMA [facility] [address] [place] [address] [facility] [address] [place] [address] * Troponin T, Baseline with 2 Hour/6 Hour Reflex Biomarker Panel (02/19/2024 8:26 PM CDT) Pathologist [facility] Troponin T, Baseline, 5th gen 6 <=15 ng/L 02/19/2024 9:34 PM CDT [facility] Blood (Blood, Venous) 02/19/2024 8:26 PM CDT 02/19/2024 9:05 PM CDT Yolanda Champagne M.D. LAB BLOOD TROPONIN Final Re sult [facility] [address] [place], [place] [address] [place] [address] * (ABNORMAL) NT-Pro B-Type Natriuretic Peptide (BNP) (02/19/2024 8:26 PM CDT) [facility] NT-Pro BNP 101(H) <=88 pg/mL 02/19/2024 9:34 PM CDT [facility] Comment: NT-proBNP values less than 300 pg/mL [...] ADD-ON Final Resu lt Performing Organization Address City/[facility]/ZIP Co de Phone Number [facility] [address] [place], [place] [phone] [place] [address] [address] [place] [address] * (ABNORMAL) Basic Metabolic Panel (02/19/2024 8:26 PM CDT) [facility] Potassium, P 4.5 3.6 - [...] M.D. LAB BLOOD ADD-ON Final Resu lt [facility] [address] [place] [address], [facility] STMA [facility] [address] [place] [address] * DX Chest AP or PA and [...] CDT) Ventricular Rate ECG/Min 54 BPM MUSE [place] Interval 176 ms MUSE QRSD Interval 90 ms MUSE QT Interval 430 ms MUSE QTC Interval 407 ms MUSE P [place] 73 degrees MUSE R [place] 9 degrees MUSE T Wave [place] 62 degrees MUSE 02/19/2024 7:45 PM CDT [...] ECG ORDERABLES Final Resul t MUSE NA * S-TSH (Thyroid-Stimulating Hormone - Sensitive) (12/06/2017 12:49 AM CDT) TSH, Sensitive 2.9 0.3 - 4.2 mIU/L 12/06/2017 1:50 AM CDT [facility] Blood (Blood, Venous) 12/06/2017 12:49 AM CDT 12/06/2017 1:50 AM CDT us Thiago Morgan M.D. LAB BLOOD ADD-ON Final Resu lt [facility] [address] [place] [address], [facility] from Last 3 Months or Most Recently Relevant to Health Maintenance Insurance [employer] Advance Directives For more information, please contact: [phone] * Full Code (Latest Code Status on File) Date Activated Date Inactivated Comments 12/06/2017 12:07 PM 12/06/2017 6:55 PM Question Answer Comments Full Code: Discussed * Full Code Date Activated Date Inactivated Comments 12/06/2017 1:26 AM 12/06/2017 12:07 PM Question Answer Comments Full Code: Not Discussed Due to: Not medically appropriate Care Teams Site Monitor Relationship Specialty Start Date End Date Elsewhere, Pcp PCP - General Internal Medicine 02/19/24
--- OUTSIDE RECORDS SUMMARY | 2024-04-19 10:25 | XMS_ITS | Encounter Summary ---
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 Not on file N ot on file documented as of this encounter Medications at Time of Discharge acetaminophen (TYLENOL) 500 MG tablet Take 500 mg by mouth if needed aspirin 81 MG EC tablet Take 1 tablet (81 mg total) by mouth 1 (one) time each day cholecalciferol (VITAMIN D-[address]) 1000 units tablet Take 1,000 Units by mouth 1 (one) time each day diclofenac (VOLTAREN) 1 % topical gelIndications:Ar thritis of hand, right,Biceps tendonitis, right Apply 2 g to affected area(s) 4 times daily as needed for pain 100 g 3 04/21/2019 glucosamine-chond roitin 500-400 MG tablet Take 1 tablet by mouth 1 (one) time each day ibuprofen (ADVIL,MOTRIN) 200 MG tablet Take 400 mg by mouth if needed Krill Oil 1000 MG capsule Take 2,000 mg by mouth 1 (one) time each day levothyroxine (Synthroid) 150 MCG tablet levothyroxine (SYNTHROID) 175 MCG tablet Take 1 tablet (175 mcg total) by mouth daily loratadine (CLARITIN) 10 MG tablet Take 1 tablet (10 mg total) by mouth daily losartan (COZAAR) 50 MG tablet Take 1 tablet (50 mg total) by mouth 1 (one) time each day meloxicam (MOBIC) 7.5 MG tablet Take 1 tablet (7.5 mg total) by mouth 1 (one) time each day Takes 1 1/2 tablets per day omega-3 acid ethyl esters (LOVAZA) 1 g capsule Take 2 capsules (2 g total) by mouth 2 times daily Brule-3 Fatty Acids (Fish Oil) 875 MG capsule tamsulosin (FLOMAX) 0.4 MG 24 hr capsule Take 1 capsule (0.4 mg total) by mouth 1 (one) time each day documented as of this encounter Plan of Treatment Not on file documented as of this encounter Procedures Procedure Name Priority Date/Time Associated Diagnosis Comments XR KNEE 4+ VIEWS RIGHT Routine 04/01/2024 2:22 PM SCIENCE TEACHER Acute pain of right knee documented in this encounter Results * X-ray Knee 4+ Views Right (04/01/2024 2:22 PM SCIENCE TEACHER) Anatomical Region Laterality Modality Lower Extremities, Knee, Patella Right Digital Radiography Impressions 04/01/2024 3:01 PM SCIENCE TEACHER 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 Right knee joint effusion. If clinical concern persists, consider MRI for further evaluation. Narrative 04/01/2024 3:01 PM SCIENCE TEACHER INDICATION: Right knee pain, felt a pop, [...] concern persists, consider MRI for further evaluation. us Odilia Chua PA-C IMG XR PROCEDURES Final Resu lt documented in this encounter Visit Diagnoses Not on filedocumented in this encounter Care Teams Track Maintainer Relationship Specialty Start Date End Date Karl Rose MD [address] [place] [phone] PCP - General 12/23/17 documented as of this encounter
--- OUTSIDE RECORDS SUMMARY | 2024-04-19 10:25 | XMS_ITS | Encounter Summary ---
Author Organization [facility] Address [address], [place] [address] Care Team Providers Care Industrial Economics Teacher Name Role Phone Chad Ryan MD Primary Care Provider [phone] Encounter Details Date Type Department Care Team (Late st Contact Info) Description 04/15/2022 [facility] [phone] Ashlyn Carias, HOME HEALTH CLINICIAN, DNP [address] [place] [address] Encounter for screening for malignant neoplasm of colon Social History Tobacco Use Types Packs/Day Years Used Date Smoking Tobacco: Never Smokeless Tobacco: Never Alcohol Use Standard Drinks/Week Comments Yes 2 (1 standard drink = 0.6 oz pur e alcohol) 2/week Sex and Gender Information Value Date Recorded Sex Assigned at Not on file Gender Identity Not on file Sexual Orientation Not on file documented as of this encounter Plan of Treatment Not on file documented as of this encounter Procedures Procedure Name Priority Date/Time Associated Diagnosis Comments FIT,OCCULT BLOOD, STOOL Routine 04/23/2022 8:00 AM CROSS ROLLER Encounter for screening for malignant neoplasm of colon [ICD-10-CM] [facility] FIT [facility]IT Routine 04/15/2022 9:0 7 PM CROSS ROLLER Encounter for screening for malignant neoplasm of colon [ICD-10-CM] documented in this encounter Results * FIT Colon Rectal Cancer Screening (04/23/2022 8:00 AM CROSS ROLLER) FIT Specimen 1 Negative Negative 04/26/2022 2:29 PM CROSS ROLLER [facility] Stool Non-blood Collection / Unknown 04/23/2022 8:00 AM CROSS ROLLER 04/26/2022 2:14 PM CROSS ROLLER Ashlyn Carias ROGERIO, DNP LAB_1 Performing Organization Address [facility] Co de Phone Number [facility] [address] [phone] * [facility] FIT KIT (04/15/2022 9:07 PM CROSS ROLLER) [facility] FIT KIT SENT Yes 04/26/2022 2:14 PM CROSS ROLLER [facility] KIT RECEIVED Kit Received at [facility] 04/26/2022 2:14 PM CROSS ROLLER [facility] Stool Non-blood Collection / Unknown 04/15/2022 9:07 PM CROSS ROLLER 04/15/2022 9:07 PM CROSS ROLLER Ashlyn Cha Jv BEATTY, DNP LAB_1 Performing Organization Address [facility] de Phone Number [facility] [address] [phone] documented in this encounter Visit Diagnoses Diagnosis Encounter for screening for malignant neoplasm of colon Special screening for malignant neoplasms, colon documented in this encounter Care Teams Industrial Economics Teacher Relationship Specialty Start Date End Date Chad Ryan MD [address] [place] [address] PCP - General Family Practice 11/28/20 documented as of this encounter
--- OUTSIDE RECORDS SUMMARY | 2024-04-19 10:25 | XMS_ITS | Encounter Summary ---
Author Organization [facility] er Address [address] [place] [address] Care Team Providers Care Repairer Resistance Welding Machines Name Role Phone Karl Rose MD Primary Care Provider [phone] Reason for Referral * Imaging (Routine) - Pending Review Specialty Diagnoses / Procedures Referred By Contclaudine t Referred To Contact Radiology Diagnoses Acute pain of right knee Procedures MRI knee right wo IV contrast Odilia Chua PA-C [address] [place] [phone] Phone: tel: fax: [facility] [address] [place] [address] Phone: tel: fax: Referral ID Status Reason Start Date Expiration Date V isits Requested Visits Authorized [id number] Pending Review 04/01/2024 04/01/2025 1 1 LATOR MECHANIC Reason for Visit * Reason Comments Knee Injury Right - DOI 03/31/24 Encounter Details Date Type Department Care Team (Late st Contact Info) Description 04/01/2024 1:30 PM ESCALATOR MECHANIC Office Visit [facility] [address] [place] [address] Odilia Chua PA-C [address] [place] [phone] Acute pain of right knee (Primary Dx) Social History Tobacco Use Types Packs/Day Years [...] 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 Not on file N ot on file documented as of this encounter Last Filed Vital Signs Vital Sign Reading Time Taken Comments Blood Pressure 121/69 04/01/2024 1:43 PM ESCALATOR MECHANIC Pulse 57 04/01/2024 1:43 PM ESCALATOR MECHANIC Temperature 36.3 C (97.3 F) 04/01/2024 1:43 PM ESCALATOR MECHANIC Respiratory Rate 20 04/01/2024 1:43 PM ESCALATOR MECHANIC Oxygen Saturation - - Inhaled Oxygen Concentration - - Weight 109 kg (239 lb 6.4 oz) 04/01/2024 1:43 PM ESCALATOR MECHANIC Height 185 cm (6' 0.84) 04/01/2024 1:43 PM ESCALATOR MECHANIC Body Mass Index 31.73 04/01/2024 1:43 PM ESCALATOR MECHANIC documented in this encounter Patient Instructions * Patient Instructions* Odilia Chua PA-C - 04/01/2024 1:30 PM ESCALATOR MECHANIC -Start acetaminophen (or Tylenol) 500mg tablets (2 tabs three times a day) -Continue meloxicam once daily with food LATOR MECHANIC LATOR MECHANIC documented in this encounter Progress Notes * Odilia Chua PA-C - 04/01/2024 1:30 PM CST Established Patient Visit Reason For Consult Chief Complaint Patient presents with Knee Injury Right - DOI 03/31/24 History Of Present Illness Chad Mitchell is a 64 y.o. male presenting to the orthopedic clinic for right knee pain that began yesterday, 03/31/2024. This is a Workmen's Compensation injury. 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 He states that yesterday at work, he twisted his right knee andfelt a pop. He denies any fall. He rates his pain as has an 8 out of 10 and describes his pain assharp. He states the pain is worse with lifting his leg or twisting his foot and made better with nonweightbearing. He has been utilizing meloxicam, knee negotiations director brace, and ice. He points along the superior and lateral aspect of his knee as his area of maximal pain. He complains of associated swelling but denies any numbness/tingling, loss of motion/stiffness, weakness, grinding, clicking, or locking. He does have history of right knee pain, but previously the pain has been more medial and posterior. He presents now for further evaluation. Past Medical History He has no past medical history on file. Surgical History He has a past surgical history that includes Other surgical history; Colonoscopy (06/28/2013); Hernia repair; Shoulder surgery (Left, 01/27/2013); and Ankle surgery. Social History He reports that he quit smoking about 34 years ago. His smoking use included cigars. He has never used smokeless tobacco. He reports current alcohol use. He reports that he does not use drugs. Allergies Other, Pollen extract, and Seasonal Medications (Not in a hospital admission) Review of Systems Review of Systems Musculoskeletal: Positive for arthralgias, gait problem and joint swelling. Negative for myalgias. Right knee Skin: Negative for color change, rash and wound. Neurological: Positive for weakness. Negative for numbness. Last Recorded Vitals Blood pressure 121/69, pulse 57, temperature 36.3 ??C (97.3 ??F), resp. rate 20, height 1.85 m (6' 0.84), weight 109 kg (239 lb 6.4 oz). Physical Exam GENERAL: Alert and oriented x 3. In no acute distress. Medium build appearance. Antalgic gait pattern. Appropriate affect. MUSCULOSKELETAL: Right knee/lower extremity: No lesions, wounds, or abrasions. No erythema or ecchymosis. No increased warmth or obvious deformity. Mild diffuse knee swelling with palpable effusion and no crepitus. Tender to palpation along the lateral joint line and lateral femoral condyle. Calf is soft, nontender, and compressible. Full passive knee range of motion. Able to actively flex the knee with inabilityto actively extend the knee past 90 degrees. Limited ability to perform special tests due to patient guarding and pain response. Neurovascularly intact distally. Normal sensation to light touch. Relevant Results X-ray Knee 4+ Views Right Narrative: INDICATION: Right knee pain, felt a pop, anterolateral knee pain DOI: 03/31/2024 COMPARISON: 06/29/2018. FINDINGS: Four views. No acute fracture or dislocation. Mild-moderate tricompartmental degenerative changes of the right knee, most significantly involving the medial tibiofemoral compartment.. There are multiple ossifiedintra-articular loose bodies noted There is evidence of a right knee joint effusion. Joint effusion. Standing views of the left knee demonstrate mild-moderate degenerative changes. Impression: 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 Right knee joint effusion. If clinical concern persists, consider MRI for further evaluation. Assessment/Plan Diagnosis Plan 1. Acute pain of right knee X-ray Knee 4+ Views Right X-ray Knee 4+ Views Right MRI knee right wo IV contrast MRI knee right wo IV contrast The radiological findings were reviewed with the patient in detail. Upon independent review of the images today, there is no evidence of any acute fractures or dislocations. I suspect internal derangement of the right knee and do not believe the pain is stemming from his medial knee arthritis. Due to the acuteness of his injury, recommend ice and elevation to help with swelling. [id number] acetaminophen and/other NSAID medications may be used as needed for pain if tolerated. The patient already has a prescription for meloxicam. He should not use his medication in conjunction with other oral NSAID medications. The risks and precautions of these medications were addressed. We discussed the importance of activity modification and avoiding aggravating factors, using his pain as a guide on what to avoid. He should not utilize his medial negotiations director brace as all his pain is lateral. We will provide the patient with a hinged knee brace to aid in ambulation purposes. We will also provide the patient with a new set of crutches fitted to size. He may weight-bear as tolerated. We discussed o btaining a MRI for further evaluation, and the patient opted to proceed. Pending the results of theMRI, further recommendations will be provided. A work note was drafted and printed out for the patient. All questions and concerns were addressed. The patient was agreeable to this plan and voiced his understanding. He will follow-up after the MRI, or sooner with any problems. 40 minutes were spent preparing to see the patient, reviewing and/or obtaining history, examining the patient, counseling, documenting, and/or interpretation of pertinent studies. LATOR MECHANIC documented in this encounter Plan of Treatment Scheduled Orders Name Type Priority Associated Diagnoses Orde r Schedule MRI knee right wo IV contrast Imaging Routine Acute pain of right knee Expected: 04/01/2024, Expires: 04/01/2025 documented as of this encounter Procedures Procedure Name Priority Date/Time Associated Diagnosis Comments XR KNEE 4+ VIEWS RIGHT Routine 04/01/2024 2:22 PM ESCALATOR MECHANIC Acute pain of right knee documented in this encounter Results * X-ray Knee 4+ Views Right (04/01/2024 2:22 PM ESCALATOR MECHANIC) Anatomical Region Laterality Modality Lower Extremities, Knee, Patella Right Digital Radiography Impressions 04/01/2024 3:01 PM ESCALATOR MECHANIC 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 Right knee joint effusion. If clinical concern persists, consider MRI for further evaluation. Narrative 04/01/2024 3:01 PM ESCALATOR MECHANIC INDICATION: Right knee pain, felt a pop, [...] lt documented in this encounter Visit Diagnoses Diagnosis Acute pain of right knee- Primary documented in this encounter Care Teams Repairer Resistance Welding Machines Relationship Specialty Start Date End Date Karl Rose MD [address] [place] [address] PCP - General 12/23/17 documented as of this encounter
--- OUTSIDE RECORDS SUMMARY | 2024-04-19 10:25 | XMS_ITS | Encounter Summary ---
Author Organization [facility] er Address [address] [place] [address] Care Team Providers Care Instructor Trainer Canine Service Name Role Phone Karl Rose MD Primary Care Provider [phone] Reason for Visit * Reason Onset Date Comments [employer] Paperwork 04/01/2024 Encounter Details Date Type Department Care Team (Late st Contact Info) Description 04/01/2024 Telephone [facility] [address] [place] [address] Odilia Chua I. 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 Copy sent to scanning. T LIABILITY ANALYST * Telephone Encounter - Odilia Chua PA-C - 04/05/2024 3:03 PM CST Completed paperwork. T LIABILITY ANALYST * Telephone Encounter - Allison Rodgers MA - 04/05/2024 2:27 PM CST Paperwork placed in your in-basket. T LIABILITY ANALYST * Telephone Encounter - Dane Quintero - 04/05/2024 11:58 AM CST [facility] Paperwork in Provider's Mailbox at Orthopedics Desk. Thank you! T LIABILITY ANALYST * Telephone Encounter - Allison Rodgers MA - 04/05/2024 8:28 AM CST Please call patient - he may drop his paperwork off, send it in a doo chart message or fax it to us at [phone]. Thank you. T LIABILITY ANALYST * Telephone Encounter - Dane Quintero - 04/01/2024 4:48 PM CST Patient called stating he forgot to give Odilia Chua his Workman's Comp paperwork to fill out. He'swondering is there's a way to get it to her quickly. Please advise, thank you! Patient's callback #: T LIABILITY ANALYST documented in this encounter Plan of Treatment Not on file documented as of this encounter Visit Diagnoses Not on filedocumented in this encounter Care Teams Instructor Trainer Canine Service Relationship Specialty Start Date End Date Karl Rose MD [address] [place] [address] PCP - General 12/23/17 documented as of this encounter
--- OUTSIDE RECORDS SUMMARY | 2024-04-19 10:25 | XMS_ITS | Clinical Summary ---
[facility] Address [address] [place] [address] Care Team Providers Care Tank Inspector Name Role Phone Chad Ryan MD Primary Care Provider [phone] Source Comments You are receiving this document as you are listed as the primary care provider,follow-up provider, or the patient has been referred to you for consultation.This is in compliance with the Medicare and[facility] EHR Incentive Program,which states Providers who transition their patient to another setting of careor provider of care or refers their patient to another provider of care shouldprovide summary care record for each transition of care or referral. [facility] Allergies No known active allergies Medications Medication Sig Dispensed Refills Start Date End Date Status SYNTHROID 150 MCG tablet 06/03/2019 Active meloxicam (MOBIC) 7.5 MG tablet Take 7.5 mg by mouth daily. 10/05/2020 Active fluticasone propionate (FLONASE) 50 MCG/ACT nasal solution 1 [place] daily. 09/27/2020 Active cholecalciferol (VITAMIN D3) 25 MCG (1000 UT) tablet Take 1,000 Units by mouth daily. Active [place]-3 Fatty Acids (FISH OIL) 875 MG CAPS Ac tive Misc Natural Products (GLUCOSAMINE CHOND CMP TRIPLE OR) Active aspirin 81 MG chewable tablet Chew and swallow 81 mg by mouth daily. Active tamsulosin (FLOMAX) 0.4 MG CAPS capsule Take 1 Capsule (0.4 mg) by mouth daily. 04/19/2022 Active Active Problems Problem Noted Date Diagnosed Date Obstructive sleep apnea 08/18/2019 Overview (05/21/2022): Setting: [facility] Supplied by: Briseyda PSG done: 2016 PDS Kirsten Sleep AHI RDI 7.5 (eds) Lowest O2 Sat: 85% Hypothyroid 08/18/2019 Social History Tobacco Use Types Packs/Day Years Used Date Smoking Tobacco: Never Smokeless Tobacco: Never Tobacco Cessation:Counseling Given: Not Answered Alcohol Use Standard Drinks/Week Comments Yes 2 (1 standard drink = 0.6 oz pur e alcohol) 2/week Sex and Gender Information Value Date Recorded Sex Assigned at Not on file Gender Identity Not on file Sexual Orientation Not on file Last Filed Vital Signs Vital Sign Reading Time Taken Comments Blood Pressure 112/65 11/28/2020 2:18 PM CDT Pulse 54 11/28/2020 2:18 PM CDT Temperature 36.1 C (97 F) 08/28/2021 3:43 PM CDT Respiratory Rate 15 11/28/2020 2:18 PM CDT Oxygen Saturation 98% 11/28/2020 2:18 PM CDT Inhaled Oxygen Concentration - - Weight 106.6 kg (235 lb) 10/15/2022 3:45 PM CDT Height 188 cm (6' 2) 10/15/2022 3:45 PM CDT Body Mass Index 30.17 10/15/2022 3:45 PM CDT Plan of Treatment Health Maintenance Due Date Last Done Comments Colon Cancer Screening Plan Due 1960 Hep C Screening (Preventive Services) 1960 PSA Screening Discussion 1960 HIV Screening (Preventive Services) 1978 Adult Preventive Visit 01/15/1980 Cholesterol 1997 Zoster/Shingles (1 of 2) 01/15/2012 COVID-19 Vaccine ( season) 2024 04/04/2022, 04/02/2021, 08/26/2020, Additional history exists Influenza (#1) 2024 04/04/2022, 03/19, 04/09/2019, Additional history exists DTaP/Tdap/Td (2 - Tdap) 06/06/2027 06/06/2017 RSV (1 - 1-dose 75+ series) 2037 HepA Aged Out No longer eligi ble based on patient's age to complete this topic HepB Aged Out No longer eligi ble based on patient's age to complete this topic Hib Aged Out No longer eligi ble based on patient's age to complete this topic IPV (Polio) Aged Out No longer eligi ble based on patient's age to complete this topic RSV Aged Out No longer eligi ble based on patient's age to complete this topic MCV4 Aged Out No longer eligi ble based on patient's age to complete this topic Pneumococcal Aged Out No longer eligi ble based on patient's age to complete this topic Care Teams Tank Inspector Relationship Specialty Start Date End Date Chad Ryan MD [address] [address] PCP - General Family Practice 11/28/20
== END 2024-04-19 10:23 | disposition home or self-care (01) ==
PROVIDERS: PCP Family Medicine; Visit Provider Physician Assistant
DX: M25.561 Pain in right knee (principal); M25.461 Effusion, right knee; M71.21 Synovial cyst of popliteal space [Baker], right knee; M17.11 Unilateral primary osteoarthritis, right knee
CPT/HCPCS: 73721

== ENCOUNTER 2024-05-25 10:51 | Outpatient (CLI) | payer OTHER, SELFPAY | END 2024-05-25 10:52 | disposition home or self-care (01) | LOC: FBOREF 11:02 | PROVIDERS: PCP Family Medicine; Visit Provider Family Medicine | DX: I10 Essential (primary) hypertension (principal); M17.11 Unilateral primary osteoarthritis, right knee; Z96.651 Presence of right artificial knee joint; Z51.89 Encounter for other specified aftercare | CPT/HCPCS: 80048; 85025 ==

== ENCOUNTER 2024-05-25 14:56 | Outpatient (RCR) | payer OTHER, SELFPAY | END 2024-09-22 23:59 | disposition home or self-care (01) | PROVIDERS: PCP Family Medicine; Visit Provider Orthopaedic Surgery Sports Medicine | DX: M17.11 Unilateral primary osteoarthritis, right knee (principal); Z96.651 Presence of right artificial knee joint; Z51.89 Encounter for other specified aftercare | CPT/HCPCS: 80048; 85025; 97110; 97161; 97535 ==

== ENCOUNTER 2024-06-07 08:57 | Day surgery (SDC) | payer OTHER, SELFPAY ==
[2024-06-07] VITALS (25 sets, daily range): BP systolic 81–122; BP diastolic 41–84; PULSE 41–62; RESP 12–18; TEMP 35.7–36.8; O2SAT 93–100
[2024-06-07] MEDS: SODIUM CHLORIDE 0.9 % (FLUSH) 10 ML SYRINGE IVF (09:15)
[2024-06-07] MEDS: LACTATED RINGERS 1000 ML 1,000 ML 100 ML IV (09:15)
[2024-06-07] MEDS: OXYCODONE (CR) 10 MG TAB.ER.12H PO (09:30)
[2024-06-07] MEDS: ACETAMINOPHEN 500 MG TABLET 1000 MG PO ×3 (09:30→21:42)
[2024-06-07] MEDS: MIDAZOLAM HCL 1 MG/ML inj IVP (10:35)
[2024-06-07] MEDS: fentaNYL 100 MCG/2 ML inj IVP (10:35)
--- NOTE | 2024-06-07 10:48 | SUR.PREOP ---
TIME?OUT:?1035 PT/RN/MDA?VERIFICATION?OF?SURGICAL?SITE,?PROCEDURE,?AND?CONSENT OBTAINED?PRIOR?TO?INVASIVE?PROCEDURE.
[2024-06-07] MEDS: TRANEXAMIC ACID 100 MG/ML INJ 1000 MG IV (10:55)
[2024-06-07] MEDS: CEFAZOLIN 2 GM in 0.9 % SODIUM CHLORIDE Mini-bag 100 ML IVPB ×2 (10:55→17:16)
--- NOTE | 2024-06-07 11:19 | W.PM.NB ---
Nerve Block Nerve Block Time Seen by Provider: 10:36 Date Seen: 06/07/24 Type of block requested by surgeon for post-operative analgesia: geniculars Side: right Time out performed: Yes Verification of patient name: Yes Verification of date of : Yes Site marking: site marked Name of person performing procedure: Isidro Continuous monitoring Was continuous monitoring of O2 sat, B/P, color television console monitor, recorded every 15 minutes?: Yes Procedure Checklist: sterile prep, needles and gloves Ultrasound guided. Images saved: Yes Medications given in 5ml increments after negative aspiration: Marcaine %: 0.5 mL: 10 Needle gauge: 25 Patient tolerated procedure well: Yes Block Charges Block Charge (with Pro Fee): Genicular Nerve Block Use of Ultrasound Machine for Block: Yes- US Guidance/pain block
--- NOTE | 2024-06-07 11:22 | W.PM.NB ---
Nerve Block Nerve Block Time Seen by Provider: 10:36 Date Seen: 06/07/24 Type of block requested by surgeon for post-operative analgesia: adductor canal Side: right Time out performed: Yes Verification of patient name: Yes Verification of date of : Yes Site marking: site marked Name of person performing procedure: [place] Continuous monitoring Was continuous monitoring of O2 sat, B/P, emergency department director, recorded every 15 minutes?: Yes Procedure Checklist: sterile prep, needles and gloves Ultrasound guided. Images saved: Yes Medications given in 5ml increments after negative aspiration: Marcaine %: 0.5 mL: 20 Needle gauge: 22 Precedex (mcg): 20 Patient tolerated procedure well: Yes Block Charges Block Charge (with Pro Fee): Femoral Nerve Use of Ultrasound Machine for Block: Yes- US Guidance/pain block
--- NOTE | 2024-06-07 12:07 | PM.ORPRC ---
Procedure Note Date of procedure: 06/07/24 Procedure: PREOPERATIVE DIAGNOSIS: 1. Right knee osteoarthritis, primary, severe 2. Right knee multiple loose bodies POSTOPERATIVE DIAGNOSIS: 1. Right knee osteoarthritis, primary, severe 2. Right knee multiple loose bodies PROCEDURE: 1. Right total knee arthroplasty 2. Right knee multiple loose body removal (20+ separate loose bodies) SURGEON: Christian Gibbons MD. FINGER LIFT OPERATOR: PAT Nascimento - Of note, a skilled aquatics assistant department head was critical for this case to aid in patient positioning, tissue retraction, limb manipulation/positioning, and closure. ANESTHESIA: Spinal anesthetic EBL: 50ml IMPLANTS: DePuy J&J uncemented TKA - Attune PS femur size 8 Size 8 tibia 6 mm poly spacer 38 mm Affixium patella TOURNIQUET: 75 minutes at 300 torr COMPLICATIONS: None evident INDICATIONS: The patient is a pleasant 64-year-old male who has experienced severe right knee pain and difficulty bearing weight. Workup included x-rays which revealed severe osteoarthrosis in the knee. Given the deformity, the dysfunction, and the pain, as well as the failure of nonoperative management, recommendation was made for surgery. FINDINGS: Full-thickness chondral loss diffusely throughout the medial and to lesser degree lateral and patellofemoral compartments. Large effusion upon entering the joint. Multiple loose bodies or (20+ that could be visualized). DESCRIPTION OF PROCEDURE: Following a thorough discussion of risks, benefits, and alternatives consent was obtained and the right knee was marked. The patient was brought to the operating room and placed supine on the operating table. Induction of anesthesia was undertaken. 2 g IV Ancef and 1 g tranexamic acid was administered within 1 hr of incision preoperatively. Proper time-out was performed identifying proper patient, site, procedure. The operative extremity was prepped and draped in the appropriate sterile fashion using ChloraPrep after the patient was positioned supine with all bony prominences well padded. A longitudinal, anterior, midline skin incision was made starting approximately 3cm proximal to the superior pole of the patella and advanced distal to the tibial tubercle. A sub vastus approach was utilized . After mobilizing the patella, retropatellar fatpad was resected and the synovium in the suprapatellar pouch excised to visualize the anterior femoral cortex. Femoral preparation was performed via an intramedullary guide. Step drill allowed access into the femoral canal. The distal cutting guide was placed with 5? of valgus and 10 mm cut on the distal femur. Femur was sized using a anterior referencing guide in 3? of external rotation. This found have a best fit with the sizing noted above. The 4 in 1 cutting block was then placed, and the distal femur shaped accordingly. The box cut was then created and the trial implant inserted to confirm appropriate fit. We turned our attention to the proximal tibia. Extramedullary guide was utilized for cutting with the goal of being 90 degree cut from the mechanical axis of the tibia in the varus/valgus plane utilizing tibial crest as the primary alignment. Initially a 3 mm resection was performed from the medial tibial plateau. Ultimately, balancing was achieved in both flexion and extension in both varus and valgus. The knee was able to achieve full extension comfortably. It was sized to be a best fit with as noted above. Patellar prep began with an initial measurement/thickness of 26 mm. It was resected back to approximately 16 mm. The patella prep was completed with drilling and a trial placed. At this stage, trial implants were removed, the tibia and femoral and patellar components were opened and inserted. The real poly spacer was opened and inserted. A 3 min Betadine soak performed. Finally, a final irrigation round with normal saline was performed. Closure performed with 0 PDS and #0 Stratafix for the quad tendon/retinaculum. 2-0 Vicryl/Stratafix for the subcutaneous and 4-0 Monocryl for subcuticular closure. Dressings were applied and the patient was awoken from anesthesia after the tourniquet deflated and transferred the PACU in stable condition. A skilled aquatics assistant department head was critical for this case to aid in patient positioning, tissue retraction, bone exposure, limb manipulation/positioning, patient safety, and closure. PLAN: 1. Weight bear as tolerated operative extremity. 2. 23 hr perioperative antibiotics. 3. Ice. 4. PT/OT consults for ambulation assistance/mobility education. 5. Social work consult for discharge planning. 6. DVT prophylaxis with at SCDs, and aspirin twice daily.
--- NOTE | 2024-06-07 12:11 | CRLHL7_ITS ---
For Patients: As a result of the Cures Act, medical imaging exams and procedure reports are released immediately into your electronic medical record. You may view this report before your referring provider. If you have questions, please contact your health care provider. HISTORY: Right total knee arthroplasty. TECHNIQUE: Two views of the right knee. COMPARISON: 04/19/2024. FINDINGS: Intact right total knee arthroplasty with patellar resurfacing procedure. Components are appropriately seated. No fracture or dislocation. Soft tissue gas is present. IMPRESSION: 1. Intact right total knee arthroplasty. Dictated by Von Puri MD @ 06/08/2024 6:03:09 AM (Electronically Signed)
--- NOTE | 2024-06-07 12:45 | P.ANES_ITS ---
Anesthesia Charges Start Date/Time Anesthesia Start Date: 06/07/24 Anesthesia Start Time: 10:51 Stop Date/Time Anesthesia Stop Date: 06/07/24 Anesthesia Stop Time: 12:43 Coding CPT Codes CPT Codes: ANESTH KNEE ARTHROPLASTY - 28462 ([id number]) P3 - PATIENT W/SEVERE SYS DISEASE, QZ - PRODUCT SUPPORT ANALYST SVC W/O WINDOWS SYSTEMS ENGINEER BY
--- NOTE | 2024-06-07 12:45 | W.ANESCHARGE ---
Anesthesia Charges Start Date/Time Anesthesia Start Date: 06/07/24 Anesthesia Start Time: 10:51 Stop Date/Time Anesthesia Stop Date: 06/07/24 Anesthesia Stop Time: 12:43 Coding CPT Codes CPT Codes: ANESTH KNEE ARTHROPLASTY - 60780 ([id number]) P3 - PATIENT W/SEVERE SYS DISEASE, QZ - ORGANIZATIONAL CONSULTANT SVC W/O ACTING INSTRUCTOR BY
[2024-06-07] MEDS: LACTATED RINGERS 1000 ML 1,000 ML 75 ML IV (13:47)
[2024-06-07] MEDS: OXYCODONE 5 MG TABLET PO ×3 (14:52→20:42)
--- NOTE | 2024-06-07 14:54 | PM.IMCN1 ---
Date of Consult Patient: [facility] Patient Consult date: 06/07/24 Requesting Physician: Orthopedics Primary Care Provider: Chad Ryan MD Consult Narrative Narrative: Chad Mitchell is a 64 year old male seen in consultation for management of medical problems following right total knee arthroplasty. Procedure performed by Dr. Gibbons. No complications. Additionally had removal of multiple loose bodies in the knee. Preoperatively reports that he was doing well. There were no significant medical concerns at his preop evaluation. He reports he has been otherwise feeling well. He does have significant arthritis in his 1st CMC joint and left knee which are being addressed from an orthopedic point of view as well. Postoperatively he reports some aching behind his knee but otherwise pain is adequately managed. Sensation and motion has returned to both feet and ankles at the time I see him. He is having no nausea or dyspnea or chills. Reports no significant problems with bleeding, clotting or problems with anesthesia in the past. Review of Systems Narrative: Primary medical concerns today revolve around osteoarthritis of both knees and the base of his thumb Chart notes indicate sleep apnea as well PFSH PFS Medical History (Updated 06/07/24 @ 15:04 by Dominik Le MD) Bradycardia ?R00.1 - Bradycardia, unspecified (ICD-10) Primary hypertension ?I10 - Essential (primary) hypertension (ICD-10) Obstructive sleep apnea on CPAP ?G47.33 - Obstructive sleep apnea (adult) (pediatric) (ICD-10) Elevated PSA ?R97.20 - Elevated prostate specific antigen [PSA] (ICD-10) History of atrial fibrillation ?Z86.79 - Personal history of other diseases of the circulatory system (ICD-10) Erectile dysfunction ?N52.9 - Male erectile dysfunction, unspecified (ICD-10) Cardiac arrhythmia ?I49.9 - Cardiac arrhythmia, unspecified (ICD-10) Sleep apnea ?G47.30 - Sleep apnea, unspecified (ICD-10) Tear of medial meniscus of right knee ?S83.241A - Other tear of medial meniscus, current injury, right knee, initial encounter (ICD-10) Hypothyroid ?E03.9 - Hypothyroidism, unspecified (ICD-10) Surgical History (Updated 06/07/24 @ 15:03 by Dominik Le MD) History of arthroplasty of right knee ?Z96.651 - Presence of right artificial knee joint (ICD-10) History of umbilical hernia repair ?Z98.890 - Other specified postprocedural states (ICD-10) ?Z87.19 - Personal history of other diseases of the digestive system (ICD-10) Status post ablation of incompetent vein using laser ?Z98.890 - Other specified postprocedural states (ICD-10) History of ankle surgery (08/31/15) ?Z98.890 - Other specified postprocedural states (ICD-10) History of incision and drainage (10/08/12) ?Z98.890 - Other specified postprocedural states (ICD-10) History of arthroscopy of left shoulder (01/27/13) ?Z98.890 - Other specified postprocedural states (ICD-10) Family History Grandfather Coronary artery disease Brother Diabetes Thyroid disease Daughter Seizure disorder Father Multiple myeloma Thyroid disease Social History (Updated 06/07/24 @ 15:00 by Dominik Le MD) Narrative: , 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 What is your current living situation?: I presently have a place to live Problems where you live: no known problems In the past 12 months, utilities in danger of being shut off: no In past 12 months, lack of transportation kept you from medical appts, meetings, work, or getting things needed for daily living: no In the past 12 mos, have been you worried that your food would run out before you had money to buy more?: never true In the past 12 mos, the food you bought just didn't last and you didn't have money to buy more?: never true Smoking Status: Never smoker Do you use any of these nicotine containing products: None Second hand tobacco smoke exposure: No How often do you have a drink containing alcohol: monthly or less How many standard drinks containing alcohol do you have on a typical day: 1 or 2 How often do you have six or more drinks on one occasion: Never AUDIT-C Alcohol total score: 1 Non-prescribed substance use: denies use Caffeine: Yes (150mg) How often does anyone, including family, friends and others, physically hurt you: never How often does anyone, including family, friends and others, insult or talk down to you: never How often does anyone, including family, friends and others, threaten you with harm: never How often does anyone, including family, friends and others, scream or curse at you: never service: No Meds Home Medications and Allergies Home Medications ?Medication ?Instructions ?Recorded ?Confirmed ?Type aspirin 81 mg chewable tablet (St 81 mg PO DAILY 11/25/23 06/07/24 History Eugenio Aspirin) meloxicam 7.5 mg tablet See Rx Instructions PO DAILY 11/25/23 06/07/24 History omega 9-qda-iot-fish oil 1,200 mg 1 cap PO QDAY 11/25/23 06/07/24 History (144 mg-216 mg) capsule (Fish Oil) tamsulosin 0.4 mg capsule 0.4 mg PO QDAY 11/25/23 06/07/24 History B6 1.7 mg-folic 400 mcg-B12 2.4 1 cap PO 05/25/24 05/25/24 History qdc-fjzjcj-jdnnwapougms oral capsule (Neuriva Plus Brain Performance) cholecalciferol (vitamin D3) 25 50 mcg PO DAILY 05/25/24 06/07/24 History mcg (1,000 unit) tablet ugogemmr-avqaczchaq-xl glycn-C 500 2 cap PO DAILY 05/25/24 06/07/24 History mg-400 mg capsule levothyroxine 150 mcg tablet 150 - 225 mcg PO .ud 05/25/24 06/07/24 History (Synthroid) losartan 25 mg tablet 25 mg PO DAILY 05/25/24 06/07/24 History losartan 50 mg tablet 50 mg PO DAILY 05/25/24 06/07/24 History melatonin 3 mg capsule 3 mg PO QDAY PRN 05/25/24 06/07/24 History Allergies Allergy/AdvReac Type Severity Reaction Status Date / Time No Known Drug Allergies Allergy Verified 06/07/24 09:10 Exam Narrative: Exam Narrative: He is alert and appears in no distress. He gives his own history. He is seen with his today. Head is normal. Eyes normal. Oropharynx with small airway. Neck is supple without mass or adenopathy. Respirations are clear to auscultation. Cardiovascular: S1, S2, regular bradycardia. Abdomen is soft without tenderness or mass. Const: Vital Signs, click to edit/add: Vital Signs - 24 hr 06/07/24 10:30 06/07/24 10:35 06/07/24 10:40 Temperature 97 F L 97 F L Pulse Rate 47 L 42 L 41 L Respiratory Rate 16 16 16 Blood Pressure 112/66 102/58 L 97/50 L Pulse Oximetry 94 95 95 Oxygen Delivery Me thod Nasal Cannula Nasal Cannula Nasal Cannula Oxygen Flow Rate 2 2 2 06/07/24 10:45 06/07/24 12:40 06/07/24 12:45 Temperature 97.2 F L Pulse Rate 42 L 52 L 50 L Respiratory Rate 16 14 12 Blood Pressure 107/58 L 81/41 L 92/50 L Pulse Oximetry 96 97 93 Oxygen Delivery Me thod Nasal Cannula Room Air Oxygen Flow Rate 2 06/07/24 12:50 06/07/24 12:55 06/07/24 13:00 Temperature Pulse Rate 52 L 54 L 58 L Respiratory Rate 14 12 14 Blood Pressure 97/51 L 103/56 L 101/56 L Pulse Oximetry 93 93 94 Oxygen Delivery Me thod Oxygen Flow Rate 06/07/24 13:05 06/07/24 13:10 06/07/24 13:25 Temperature 97.6 F 96.3 F L 96.3 F L Pulse Rate 50 L 46 L 46 L Respiratory Rate 12 16 16 Blood Pressure 98/55 L 97/55 L 98/58 L Pulse Oximetry 94 95 94 Oxygen Delivery Me thod Room Air Oxygen Flow Rate 06/07/24 13:40 06/07/24 13:55 06/07/24 14:23 Temperature 96.2 F L 96.3 F L Pulse Rate 46 L 46 L 46 L Respiratory Rate 16 16 16 Blood Pressure 100/50 L 96/54 L 97/55 L Pulse Oximetry 95 93 95 Oxygen Delivery Me thod Room Air Oxygen Flow Rate Documenting provider has reviewed patient's vital signs: yes Assessment and Plan Assessment and plan (1) History of arthroplasty of right knee: Problem comment: 06/07/2024, Dr. Gibbons, no complications. VTE prophylaxis with aspirin Status: Acute (2) Primary hypertension: Problem comment: On losartan 75 mg daily. Plans to take his home medication when he goes home. Status: Acute (3) Loose body of right knee: Problem comment: Innumerable ossified intra-articular bodies removed during knee arthroplasty surgery Status: Acute (4) Obstructive sleep apnea on CPAP: Status: Acute (5) Elevated PSA: Problem comment: 4.5-5.8, on tamsulosin for BPH. Monitor for urinary retention. Status: Acute (6) Bradycardia: Problem comment: Patient is had sinus bradycardia in the 40s postop. He reports that he chronically has a low pulse. Asymptomatic. Further evaluation if symptomatic Status: Acute (7) History of atrial fibrillation: Problem comment: 2014 and 2017, no recurrence since then, on aspirin for this. Status: Acute Plan Patient is admitted to the hospital for right knee arthroplasty and postoperative management of pain, therapy and other medical problems. Anticipate uncomplicated recovery from surgery. Monitor for postoperative complications related to sleep apnea, BPH with urinary retention. At patient's request will withhold his home medications. He and DKA eights he has an intention to resume all of his normal home medications after discharge from the hospital tomorrow. Total Time Spent Total Time Spent: Total time spent today is 45 minutes in review of medical records, discussing with patient and postoperative medical management, symptom management, potential complications and discharge planning.
--- NOTE | 2024-06-07 16:52 | PC.NURSE ---
End of shift [id number] - Pt arrived from PACU at approximately 1310. Family at bedside, alert and oriented but drowsy upon arrival. Weak movement noted in operative leg, ice pack on site. Dressing CDI, pedal pulse present. Pt up to chair with PT, tolerating RA and regular diet.
[2024-06-07] MEDS: ASPIRIN 81 MG TABLET EC PO (20:41)
[2024-06-07] MEDS: SENNOSIDES 1 TAB TABLET 2 TAB PO (20:41)
[2024-06-08] MEDS: OXYCODONE 5 MG TABLET PO ×3 (00:31→08:54)
[2024-06-08] MEDS: HYDROmorphone 0.5 mg/0.5 ml inj IVP (00:32)
[2024-06-08] MEDS: CEFAZOLIN 2 GM in 0.9 % SODIUM CHLORIDE Mini-bag 100 ML IVPB (01:32)
[2024-06-08 03:00] VITALS: BP 103/61; PULSE 56; RESP 16; TEMP 37.1; O2SAT 96
[2024-06-08] MEDS: ACETAMINOPHEN 500 MG TABLET 1000 MG PO ×2 (03:38→10:37)
[2024-06-08 06:37] LABS: Basophils Absolute Auto 0.01 K/uL (0.00-0.30); Basophils Percent Auto 0.2 % (0.0-3.0); Eosinophils Absolute Auto 0.06 K/uL (0.00-0.50); Eosinophils Percent Auto 0.9 % (0.0-7.0); Hematocrit 35.7 % (37.0-53.0); Immature Granulocytes Abs Auto 0.01 K/uL (0.00-0.30); Immature Granulocytes Pct Auto 0.2 %; Lymphocytes Percent Auto 17.7 % (20-44); Mean Corpuscular HGB Conc 34 gm/dL (32-36); Mean Corpuscular Hemoglobin 30 pg (26-34); Mean Corpuscular Volume 89 fL (80-100); Monocytes Percent Auto 10.8 % (0.0-11.0); Neutrophils Absolute Auto 4.62 K/uL (1.7-7.0); Neutrophils Percent Auto 70.2 % (42.0-72.0); Platelet Count* 167 K/uL (140-440); RDW Coefficient of Variation % 13.1 % (11.5-15.5); White Blood Count* 6.57 K/uL (4.50-11.00)
[2024-06-08 06:54] LABS: Potassium* 4.4 mmol/L (3.6-5.1); Sodium* 134 mmol/L (135-149)
[2024-06-08 06:57] LABS: Blood Urea Nitrogen* 20 mg/dL (7-30); Creatinine* 0.8 mg/dL (0.5-1.5); Est. Creatinine Clearance* 86.56; Estimated Glomerular Filt Rate 100 ml/min
[2024-06-08 07:00] VITALS: RESP 18
[2024-06-08 07:06] LABS: Slide Review Reflex No
--- NOTE | 2024-06-08 07:19 | PC.NURSE ---
End of shift [id number]: Pt AxOx4, pleasant, and cooperative. Pt used call light appropriately. Pt denies nausea, headache, CP, SOB. Pt reported pain the the R knee -01/26, managed with repositioning, active ice, PRN medications. See MAR. Pt continent of the bladder. Dressing appears CDI, CMS remains intact. Pt tolerating reg diet/fluids well. CPAP in place during asleep hours. Pt appears resting and watching television, call light within reach. ?
[2024-06-08] MEDS: SENNOSIDES 1 TAB TABLET 2 TAB PO (08:54)
[2024-06-08] MEDS: ASPIRIN 81 MG TABLET EC PO (08:54)
[2024-06-08] MEDS: OXYCODONE (CR) 10 MG TAB.ER.12H PO (10:36)
--- NOTE | 2024-06-08 11:09 | PC.NURSE ---
Shift note - Pt alert, oriented. Up in chair with standby assistance and walker/gait belt. Pt appeared to be irritable, reported pain in operative leg and reported feeling as though his pain was not well controlled. Medication given to pt per [facility] guidelines, pt reported no improvement. Ice on site, dressing CDI. Ortho PA made aware of pt pain control concerns, new orders given.
--- NOTE | 2024-06-08 11:15 | PM.ORPN ---
Subjective Subjective Date Seen: 06/08/24 Principal diagnosis: Status postop day 1 right total knee arthroplasty Interval history: Patient reports that he is struggling with pain. Does not feel the oxycodone is providing much relief. Acetaminophen does not help pain at all. No acute events over night aside from difficult pain management. He is taking oxycodone 10 mg every 2 hours. Continues received ice, which he states makes it worse. DVT prophylaxis: 81 mg aspirin by mouth twice daily, SCDs, walking. Denies fevers, chills, aches, N/V, CP, SOB/RODRIGUEZ, or lightheadedness. Ortho Exam Narrative Exam Narrative: -Patient appears comfortable; no apparent acute distress -Alert and oriented times 3 -Operative knee mildly swollen; soft tissues supple; no ecchymosis; no erythematous streaking. Warmth appropriate -Surgical dressing clean, dry, intact; no drainage -Bilateral calfs soft; no significant swelling, edema, tenderness, erythema, discoloration, warmth, or palpable cords -2+ DP/PT pulses, intact dermatomes and myotomes distally (5/5 strength) Const Vital Signs, click to edit/add: Vital Signs - 24 hr 06/07/24 12:40 06/07/24 12:45 06/07/24 12:50 Temperature 97.2 F L Pulse Rate 52 L 50 L 52 L Pulse Rate [Pulse Oximeter] Respiratory Rate 14 12 14 Blood Pressure 81/41 L 92/50 L 97/51 L Blood Pressure [Right Arm] Pulse Oximetry 97 93 93 Oxygen Delivery Method Room Air 06/07/24 12:55 06/07/24 13:00 06/07/24 13:05 Temperature 97.6 F Pulse Rate 54 L 58 L 50 L Pulse Rate [Pulse Oximeter] Respiratory Rate 12 14 12 Blood Pressure 103/56 L 101/56 L 98/55 L Blood Pressure [Right Arm] Pulse Oximetry 93 94 94 Oxygen Delivery Method 06/07/24 13:10 06/07/24 13:25 06/07/24 13:40 Temperature 96.3 F L 96.3 F L 96.2 F L Pulse Rate 46 L 46 L 46 L Pulse Rate [Pulse Oximeter] Respiratory Rate 16 16 16 Blood Pressure 97/55 L 98/58 L 100/50 L Blood Pressure [Right Arm] Pulse Oximetry 95 94 95 Oxygen Delivery Method Room Air 06/07/24 13:55 06/07/24 14:10 06/07/24 14:23 Temperature 96.3 F L Pulse Rate 46 L 46 L Pulse Rate [Pulse Oximeter] Respiratory Rate 16 16 Blood Pressure 96/54 L 108/64 97/55 L Blood Pressure [Right Arm] Pulse Oximetry 93 95 Oxygen Delivery Method Room Air 06/07/24 14:40 06/07/24 15:10 06/07/24 16:10 Temperature 96.5 F L Pulse Rate 46 L 46 L 46 L Pulse Rate [Pulse Oximeter] Respiratory Rate 18 18 18 Blood Pressure 104/55 L 118/74 106/64 Blood Pressure [Right Arm] Pulse Oximetry 98 99 100 Oxygen Delivery Method 06/07/24 17:03 06/07/24 17:03 06/07/24 17:08 Temperature 96.5 F L Pulse Rate 49 L Pulse Rate [Pulse Oximeter] Respiratory Rate 16 Blood Pressure 114/71 Blood Pressure [Right Arm] Pulse Oximetry 99 98 95 Oxygen Delivery Method Room Air Room Air 06/07/24 18:10 06/07/24 19:01 06/07/24 21:05 Temperature 97.0 F L 97.3 F L 97.9 F Pulse Rate 50 L 55 L Pulse Rate [Pulse Oximeter] 55 L Respiratory Rate 16 16 16 Blood Pressure 117/62 117/67 Blood Pressure [Right Arm] 122/71 Pulse Oximetry 93 99 100 Oxygen Delivery Method Room Air Room Air Room Air 06/07/24 23:00 06/07/24 23:00 06/07/24 23:00 Temperature 98.3 F Pulse Rate Pulse Rate [Pulse Oximeter] 62 Respiratory Rate 16 16 Blood Pressure Blood Pressure [Right Arm] 120/84 Pulse Oximetry 99 99 99 Oxygen Delivery Method CPAP CPAP 06/08/24 03:00 06/08/24 07:00 Temperature 98.7 F Pulse Rate Pulse Rate [Pulse Oximeter] 56 L Respiratory Rate 16 18 Blood Pressure Blood Pressure [Right Arm] 103/61 Pulse Oximetry 96 Oxygen Delivery Method CPAP Room Air Assessment and Plan Assessment and plan (1) History of arthroplasty of right knee: Problem details: 06/07/2024, Dr. Gibbons, no complications. VTE prophylaxis with aspirin Status: Acute (2) Primary hypertension: Problem details: On losartan 75 mg daily. Plans to take his home medication when he goes home. Status: Acute (3) Loose body of right knee: Problem details: Innumerable ossified intra-articular bodies removed during knee arthroplasty surgery Status: Acute (4) Obstructive sleep apnea on CPAP: Status: Acute (5) Elevated PSA: Problem details: 4.5-5.8, on tamsulosin for BPH. Monitor for urinary retention. Status: Acute (6) Bradycardia: Problem details: Patient is had sinus bradycardia in the 40s postop. He reports that he chronically has a low pulse. Asymptomatic. Further evaluation if symptomatic Status: Acute (7) History of atrial fibrillation: Problem details: 2014 and 2017, no recurrence since then, on aspirin for this. Status: Acute Plan - Complete 23 hour perioperative antibiotics. - PT/OT consult for education and assistance. - Social work consult for discharge planning - Prescribed analgesics as needed - will add extended release oxycodone 10 mg q.12 hours to help with pain. Will not add Vistaril due to patient's history of urinary retention. No oral NSAIDs due to press fit (uncemented) components. - DVT prophylaxis: 81 mg aspirin by mouth twice daily, walking, and SCDs - Anticipation is for discharge to home with family/friends today 06/08/2024 if the patient remains medically stable, pain is controlled, and they are safe with mobilization.
[2024-06-08 11:20] VITALS: BP 114/59; PULSE 55; RESP 18; O2SAT 95
--- NOTE | 2024-06-08 16:35 | PC.NURSE ---
Pt alert and oriented. Pt had complaints of pain ranging 3-8; see EMAR for intervention. Pt up with SBA and walker. Pt's IV removed; catheter intact. Pt discharged home with . Extensive education done with both pain medications and number for hospital and ortho clinic given in case of any follow up questions in regards to medications.
== END 2024-06-08 14:45 | disposition home or self-care (01) ==
LOC: OR 08:58 → MEDSURG 09:00
PROVIDERS: PCP Family Medicine; Visit Provider Orthopaedic Surgery Sports Medicine
PROC: (CPT 27447; principal; 2024-06-07 10:30)
DX: M17.11 Unilateral primary osteoarthritis, right knee (principal); M23.41 Loose body in knee, right knee; G89.18 Other acute postprocedural pain; I10 Essential (primary) hypertension; G47.33 Obstructive sleep apnea (adult) (pediatric); R97.20 Elevated prostate specific antigen [PSA]; R00.1 Bradycardia, unspecified
CPT/HCPCS: 27447; 27331; 01402; 36415; 64447; 64454; 73560; 76942; 82565; 84132; 84295; 84520; 85025; 97110; 97116; 97162; 97165; 97530; 97535; A9270; C1776; J0665; J0690; J1100; J1171; J2250; J2405; J2704; J3010; J7120

== ENCOUNTER 2024-11-30 09:42 | Outpatient (CLI) | payer OTHER, SELFPAY ==
--- NOTE | 2024-11-30 11:04 | P.ANES_ITS ---
Anesthesia Charges Start Date/Time Anesthesia Start Date: 11/30/24 Anesthesia Start Time: 10:32 Stop Date/Time Anesthesia Stop Date: 11/30/24 Anesthesia Stop Time: 11:02 Coding CPT Codes CPT Codes: TYESHA LWR INTST NDSC NOS - 21911 ([id number]) P2 - PATIENT W/MILD SYST DISEASE, QK - HUMAN SERVICES WORKER 2-4 CNCRNT ANES PROC, QX - WEARING APPAREL FOLDER SVC W/ MD MED DIRECTION
--- NOTE | 2024-11-30 11:04 | W.ANESCHARGE ---
Anesthesia Charges Start Date/Time Anesthesia Start Date: 11/30/24 Anesthesia Start Time: 10:32 Stop Date/Time Anesthesia Stop Date: 11/30/24 Anesthesia Stop Time: 11:02 Coding CPT Codes CPT Codes: TYESHA LWR INTST NDSC NOS - 52103 ([id number]) P2 - PATIENT W/MILD SYST DISEASE, QK - OPERATIONS INTELLIGENCE 2-4 CNCRNT ANES PROC, QX - MARINE BIOLOGIST SVC W/ MD MED DIRECTION
--- NOTE | 2024-11-30 11:09 | P.ANES_ITS ---
Anesthesia Charges Start Date/Time Anesthesia Start Date: 11/30/24 Anesthesia Start Time: 10:32 Stop Date/Time Anesthesia Stop Date: 11/30/24 Anesthesia Stop Time: 11:02 Coding CPT Codes CPT Codes: TYESHA LWR INTST NDSC NOS - 14429 ([id number]) P2 - PATIENT W/MILD SYST DISEASE, QK - HAND ENGRAVER 2-4 CNCRNT ANES PROC, QX - REINSURANCE CLERK SVC W/ MD MED DIRECTION
--- NOTE | 2024-11-30 11:09 | W.ANESCHARGE ---
Anesthesia Charges Start Date/Time Anesthesia Start Date: 11/30/24 Anesthesia Start Time: 10:32 Stop Date/Time Anesthesia Stop Date: 11/30/24 Anesthesia Stop Time: 11:02 Coding CPT Codes CPT Codes: TYESHA LWR INTST NDSC NOS - 00665 ([id number]) P2 - PATIENT W/MILD SYST DISEASE, QK - ASSOCIATION EXECUTIVE 2-4 CNCRNT ANES PROC, QX - INSPECTOR WIRE ROPE SVC W/ MD MED DIRECTION
== END 2024-11-30 09:43 | disposition home or self-care (01) ==
LOC: OP CLINIC 09:43
PROVIDERS: PCP Family Medicine; Visit Provider Surgery
DX: Z12.11 Encounter for screening for malignant neoplasm of colon (principal); D12.2 Benign neoplasm of ascending colon; K57.30 Diverticulosis of large intestine without perforation or abscess without bleeding
CPT/HCPCS: 00811; 00812; 45385; 88305; J2704

== ENCOUNTER 2024-12-02 13:40 | Outpatient (CLI) | payer OTHER, SELFPAY ==
--- NOTE | 2024-12-02 14:43 | W.PM.STED ---
Stress Test Note Date Date Seen: 12/02/24 Date of test: 12/02/24 Providers Referring provider: Gustabo Primary care provider: Chad Ryan Stress test physician: Mala De Los Santos Stress Test Note Stress test ordered: Stress Echo Indication for test: Dyspnea on exertion, lightheadedness, fatigue Stress test medicine: None Results discussion: Resting EKG: Sinus bradycardia, 50 beats per minute. Flipped T-waves lead V1 without any ST segment change. Resting blood pressure: 124/64 Stress test: Patient is consented on stress test ordered and agrees to proceed with exercise treadmill stress test echo following standard Attila protocol. Patient was able to exercise 9 minutes 32 seconds, stopping due to meeting heart rate goal and reaching exercise capacity. This was equivocal it with 11.1 Mets. Achieved a maximum heart rate of 140 beats per minute which was 104% of a calculated target heart rate of 134. He did have maximal blood pressure of 170/78, rate pressure product of 23,800. Had no concerning symptoms, occasional PVC seen in recovery, otherwise no arrhythmia. There was no EKG criteria met for any ischemia. Impression: Subjectively negative, objectively negative EKG portion of this stress test. Follow up suggested: We will await echo images to be read by Cardiology to couple this for a full formal diagnostic report. He will await to hear from ordering physician or his primary regarding the results. He is discharged in stable condition.
[2024-12-02 14:56] VITALS: BP 150/80; PULSE 80; RESP 18
== END 2024-12-02 13:41 | disposition home or self-care (01) ==
LOC: STRESS 13:42
PROVIDERS: PCP Family Medicine; Visit Provider Internal Medicine Cardiovascular Disease
DX: R06.09 Other forms of dyspnea (principal); I34.0 Nonrheumatic mitral (valve) insufficiency
CPT/HCPCS: 93016; 93325; 93351

== ENCOUNTER 2025-02-01 11:29 | Outpatient (CLI) | payer OTHER, SELFPAY | END 2025-02-01 11:30 | disposition home or self-care (01) | PROVIDERS: PCP Family Medicine; Visit Provider Family Medicine | DX: E03.9 Hypothyroidism, unspecified (principal); I10 Essential (primary) hypertension | CPT/HCPCS: 80048; 84443; 85025 ==

== ENCOUNTER 2025-04-07 10:41 | Outpatient (CLI) | payer OTHER, SELFPAY | END 2025-04-07 10:42 | disposition home or self-care (01) | PROVIDERS: PCP Family Medicine; Visit Provider Family Medicine | DX: M79.661 Pain in right lower leg (principal); R97.20 Elevated prostate specific antigen [PSA] | CPT/HCPCS: 80048; 80061; 80076; 82550; 84153 ==